=== PATIENT | female | born 2000 | race Caucasian/White ===

== ENCOUNTER 2019-12-24 11:24 | Emergency (ER) | payer OTHER, SELFPAY ==
--- NOTE | ~2019-12-24 | US_ITS ---
EXAMINATION: US pelvic complete w TV DATE: 12/24/2019 13:04 INDICATION: Pelvic pain, passing blood clots TECHNIQUE: Multiple transabdominal and endovaginal sonographic images of the pelvis were obtained. COMPARISON: 08/31/2018 FINDINGS: The uterus measures 7.7 x 5.2 x 3.2 cm. The endometrial complex measures 6 mm. The right ov beau measures 3.2 x 3.4 x 2.4 cm. There is a 2.5 x 2.4 x 2.1 cm complex cystic lesion of the right ova ry. The left ovary measures 2.1 x 1.5 x 1.5 cm. There is normal vascular flow in the ovaries. There i s no free fluid in the pelvis. IMPRESSION: 1. No sonographic correlate for the patient's symptoms. 2. Complex right ovarian cyst, possibly hemorrhagic. Ultrasound follow-up in 6-12 weeks is recommende d. Reviewed, dictated and finalized at location A. IMPRESSION: 1. No sonographic correlate for the patient's symptoms. 2. Complex right ovarian cyst, possibly hemorrhagic. Ultrasound follow-up in 6- 12 weeks is recommended.
[2019-12-24 11:44] VITALS: BP 112/83; PULSE 75; RESP 18; TEMP 36.9; O2SAT 98
[2019-12-24 11:59] LABS: Basophils Absolute Auto 0.1 K/mm3 (0.0-0.1); Basophils Percent Auto 1.9 % (0.2-1.2); Eosinophils Absolute Auto 0.3 K/mm3 (0-0.3); Eosinophils Percent Auto 6.4 % (0-4.4); Hematocrit 37.7 % (37.0-47.0); Hemoglobin 12.4 g/dL (12.0-15.0); Immature Granulocyte Absolute 0.01 K/mm3 (0.00-0.031); Immature Granulocyte Percent A 0.2 % (0-0.5); Lymphocytes Absolute Auto 1.63 K/mm3 (0.9-3.2); Lymphocytes Percent Auto 30.6 % (18.3-44.2); Mean Corpuscular HGB Conc 32.9 g/dl (32-36); Mean Corpuscular Hemoglobin 31.3 pg (26-34); Mean Corpuscular Volume 95.2 fl (80-100); Mean Platelet Volume 11.2 fl (7.4-10.4); Monocytes Absolute Auto 0.4 K/mm3 (0.1-0.6); Monocytes Percent Auto 8.1 % (2.6-8.5); Neutrophils Absolute Auto 2.8 K/mm3 (1.3-6.7); Neutrophils Percent Auto 52.8 % (45.5-73.1); Platelet Count Result 265 k/mm3 (150-375); Red Blood Count 3.96 M/mm3 (4.2-5.4); Red Cell Distribution Width 12.3 % (11.5-14.5); White Blood Count 5.3 K/mm3 (4.5-10.0)
[2019-12-24 12:02] LABS: Add Urine Microscopic? YES; Appearance Urine Clear (Clear); Bilirubin Urine Negative (Negative); Blood Urine 1+ (Negative); Color Urine Yellow (Yellow); Glucose Urine UA Negative (Negative); Ketones Urine Negative (Negative); Leukocyte Esterase Ur Negative LEU/UL (Negative); Mucus Urine Heavy /lpf; Nitrate Urine Negative (Negative); Protein Urine Negative (Negative); RBC Urine 0-2 /hpf (0-2); Specific Grav Ur 1.026 (1.001-1.035); Squamous Epithelial Cell Urine Few /hpf (Few); Urobilinogen Urine Negative mg/dL (<2.0); WBC Urine 0-3 /hpf
[2019-12-24 12:11] LABS: Alanine Aminotransferase 15 U/L (4-35); Albumin Level 5.2 g/dL (3.5-5.1); Alkaline Phosphatase 49 U/L (38-126); Aspartate Amino Transferase 25 U/L (14-36); Bilirubin,Total 0.5 mg/dL (0.2-1.3); Blood Urea Nitrogen 13 mg/dL (7-17); Calcium 9.8 mg/dL (8.4-10.2); Carbon Dioxide 26 mmol/L (22-30); Chloride 104 mmol/L (98-107); Estimated CRCL calculation 67 ml/min; Estimated Glomerular Filt Rate > 60; Glucose 89 mg/dL (65-105); Lipase 86 U/L (23-300); Potassium 4.1 mmol/L (3.4-5.0); Sodium 138 mmol/L (137-145)
--- NOTE | 2019-12-24 12:25 | ED.ABDPAIN ---
HPI - Abdominal Pain General Chief Complaint: Abdominal Pain Stated Complaint: passing blood clots, abd pain Time Seen by Provider: 12/24/19 12:04 Source: patient Mode of arrival: ambulatory Limitations: no limitations History of Present Illness HPI narrative: Patient is a 19-year-old female who presents with lower abdominal pain coupled with some blood-tinged vaginal discharge and is now passing clots her conche operator instructed her to come to to emergency department for further evaluation patient notes pain in the lower abdomen worse on the right side patient denies any current vomiting diarrhea urinary symptoms or similar occurrence in the past Related Data Allergies Allergy/AdvReac Type Severity Reaction Status Date / Time zamora flavor Allergy Unknown Swelling Verified 02/04/18 13:44 Review of Systems Review of Systems: All systems reviewed & are unremarkable except as noted in HPI and below PMFSH Family History Family History (Updated 07/14/15 @ 14:33 by DOCTOR UNKNOWN) Other Diabetes mellitus Social History Social History Smoking status: Never smoker Alcohol intake: never Substance use type: marijuana Gender identity (if verbalized by the patient): Female Exam Narrative: Exam Narrative: GENERAL: Well-appearing, well-nourished, and in no acute distress. HEAD: Normocephalic, atraumatic. EYES: PERRLA and EOMI. ENT: Nares clear, no rhinorrhea or epistaxis. Mucous membranes moist. Oropharynx without tonsillar hypertrophy exudate or other lesions. CHEST: Clear to auscultation. No respiratory distress. No wheezes rales or rhonchi HEART: Regular rate and rhythm. No murmur heard. Normal peripheral pulses. ABDOMEN: Soft, tenderness in the right adnexa no deformities noted no rebound or guarding remainder of abdomen nontender, nondistended, normal active bowel sounds. EXTREMITIES: Normal range of motion. No edema. SKIN: Warm, dry, no rash. NEURO: No focal deficits. Alert and oriented x3. PSYCH: Normal mood and affect. Course Course Emergency Course: Patient in the room in no distress aware of case findings treatment plan and diagnosis agreeing to follow-up as directed Vital Signs Vital signs: Vital Signs Temperature 98.4 F 12/24/19 11:44 Pulse Rate 75 12/24/19 11:44 Respiratory Rate 18 12/24/19 11:44 Blood Pressure 112/83 12/24/19 11:44 Pulse Oximetry 98 12/24/19 11:44 Temperature 98.4 F 12/24/19 11:44 Pulse Rate 75 12/24/19 11:44 Respiratory Rate 18 12/24/19 11:44 Blood Pressure 112/83 12/24/19 11:44 Pulse Oximetry 98 12/24/19 11:44 MDM - Abdominal Pain MDM Narrative Medical decision making narrative: Patient in the room in no distress aware of case findings treatment plan and diagnosis agreeing to follow-up with her conche operator likely ovarian cyst is the etiology of her symptoms felt appropriate for outpatient reevaluation also given reasons to return Lab Data Result diagrams: 12/24/19 11:49 12/24/19 11:49 Labs: Lab Results 12/24/19 12/24/19 12/24/19 Range/Units 11:49 11:49 11:49 WBC 5.3 (4.5-10.0) K/mm3 RBC 3.96 L (4.2-5.4) M/mm3 Hgb 12.4 (12.0-15.0) g/dL Hct 37.7 (37.0-47.0) % MCV 95.2 (80-100) fl MCH 31.3 (26-34) pg MCHC 32.9 (32-36) g/dl RDW 12.3 (11.5-14.5) % Plt Count 265 (150-375) k/mm3 MPV 11.2 H (7.4-10.4) fl Immature Gran % (Auto) 0.2 (0-0.5) % Neut % (Auto) 52.8 (45.5-73.1) % Lymph % (Auto) 30.6 (18.3-44.2) % [place] % (Auto) 8.1 (2.6-8.5) % Eos % (Auto) 6.4 H (0-4.4) % Baso % (Auto) 1.9 H (0.2-1.2) % Lymph # (Auto) 1.63 (0.9-3.2) K/mm3 [place] # (Auto) 0.4 (0.1-0.6) K/mm3 Eos # (Auto) 0.3 (0-0.3) K/mm3 Baso # (Auto) 0.1 (0.0-0.1) K/mm3 Abs Immat Gran (auto) 0.01 (0.00-0.031) K/mm3 Absolute Neuts (auto) 2.8 (1.3-6.7) K/mm3 Absolute Nucleated RBC
== END 2019-12-24 14:06 | disposition home or self-care (01) ==
PROVIDERS: Emergency Provider Emergency Medicine; PCP Obstetrics & Gynecology
DX: N83.201 Unspecified ovarian cyst, right side (principal); R10.9 Unspecified abdominal pain
CPT/HCPCS: 36415; 76830; 76856; 80053; 81001; 81025; 83690; 85025; 99284

== ENCOUNTER 2020-08-31 11:42 | Outpatient (CLI) | payer OTHER, SELFPAY ==
--- NOTE | ~2020-08-31 | US_ITS ---
US breast BI limited INDICATION: Breast pain TECHNIQUE: Dedicated bilateral breast ultrasound COMPARISON: No prior studies for comparison. FINDINGS: The breasts are composed of normal heterogeneous echotexture without focal solid or cystic mass. IMPRESSION: 1: Normal bilateral breast ultrasound. BI-RADS CATEGORY 1 - NEGATIVE Reviewed, dictated and finalized at location A. STRIAL TECH INSTRUCTOR
== END 2020-08-31 11:43 | disposition home or self-care (01) ==
PROVIDERS: PCP Nurse Practitioner Adult Health; Visit Provider Advanced Practice Midwife
DX: N64.4 Mastodynia (principal)
CPT/HCPCS: 76642

== ENCOUNTER 2020-11-18 17:29 | Outpatient (CLI) | payer OTHER, SELFPAY | END 2020-11-18 17:30 | disposition home or self-care (01) | LOC: ANHLAB 17:32 | PROVIDERS: PCP Nurse Practitioner Adult Health; Visit Provider Obstetrics & Gynecology | DX: O20.0 Threatened abortion (principal) | CPT/HCPCS: 36415; 84702 ==

== ENCOUNTER 2021-05-27 12:24 | Outpatient (RCR) | payer OTHER, SELFPAY ==
[2021-05-27 13:12] VITALS: BP 113/73; PULSE 98
== END 2021-07-14 09:42 | disposition home or self-care (01) ==
LOC: ANHOBOP 12:24
PROVIDERS: PCP Nurse Practitioner Adult Health; Visit Provider Obstetrics & Gynecology
DX: O36.5930 Maternal care for other known or suspected poor fetal growth, third trimester, not applicable or unspecified (principal); Z3A.33 33 weeks gestation of pregnancy
CPT/HCPCS: 59025

== ENCOUNTER 2021-06-08 12:08 | Observation (INO) | payer OTHER, SELFPAY ==
[2021-06-08 12:11] VITALS: BP 140/97; PULSE 118; RESP 18; TEMP 36.3; O2SAT 100
[2021-06-08 13:01] LABS: Add Urine Microscopic? YES; Appearance Urine Cloudy (Clear); Bacteria Urine Trace /hpf; Bilirubin Urine Negative (Negative); Blood Urine Negative (Negative); Color Urine Yellow (Yellow); Glucose Urine UA Negative (Negative); Ketones Urine Negative (Negative); Leukocyte Esterase Ur Negative LEU/UL (Negative); Mucus Urine Rare /lpf; Nitrate Urine Negative (Negative); Protein Urine Negative (Negative); RBC Urine 0-2 /hpf (0-2); Specific Grav Ur 1.008 (1.001-1.035); Squamous Epithelial Cell Urine Many /hpf (Few); Urobilinogen Urine Negative mg/dL (<2.0); WBC Urine 0-3 /hpf
--- NOTE | 2021-06-08 13:20 | PC.NURSE ---
pt states she began having some contractions. states they are irregular and more frequent than her usual.
--- NOTE | 2021-06-08 13:39 | ED.BACK ---
HPI - Back Pain/Injury General Chief Complaint: Back Pain/Injury <PREM Miguel Last Filed: 06/08/21 16:54> Stated Complaint: rib pain/35 weeks preg <PREM Miguel Last Filed: 06/08/21 16:54> Time Seen by Provider: 06/08/21 13:19 <PREM Miguel Last Filed: 06/08/21 16:54> Source: patient <PREM Miguel Last Filed: 06/08/21 16:54> Mode of arrival: ambulatory <PREM Miguel Last Filed: 06/08/21 16:54> Limitations: no limitations <PREM Miguel Last Filed: 06/08/21 16:54> History of Present Illness HPI Narrative: This is a 20-year-old G2, P1, about 35 weeks that presents to the emergency department for right-sided mid back pain. Present since yesterday. No recent injury or trauma. The pain is worse with movement and relieved with rest. She took some Tylenol this morning without relief and prompted her to be seen. While in the emergency department patient also started to note some inconsistent contractions. Denies fever, vomiting, vaginal bleeding, or discharge. <PREM Miguel Last Filed: 06/08/21 16:54> Related Data Home Medications: Home Medications Medication Instructions Recorded Confirmed [id number] 1 tablet PO DAILY 06/08/21 06/08/21 [] <PREM Miguel Last Filed: 06/08/21 16:54> Allergies/Adverse Reactions: Allergies Allergy/AdvReac Type Severity Reaction Status Date / Time zamora flavor Allergy Unknown Swelling Verified 06/08/21 12:37 <PREM Miguel Last Filed: 06/08/21 16:54> Review of Systems Review of Systems: CONSTITUTIONAL: Denies fever GASTROINTESTINAL: Reports cramping. Denies nausea, vomiting GENITOURINARY: Denies dysuria MUSCULOSKELETAL: Reports back pain, and myalgia. <PREM Miguel Last Filed: 06/08/21 16:54> All systems reviewed & are unremarkable except as noted in HPI and below <Saima Taveras PA-C - Last Filed: 06/08/21 16:54> PMFSH Past Medical History Medical History: Medical History (Updated 06/08/21 @ 13:42 by Saima Taveras PA-C) No active medical problems <Saima Taveras PA-C - Last Filed: 06/08/21 16:54> Family History Family History: Family History (Updated 07/14/15 @ 14:33 by DOCTOR UNKNOWN) Other Diabetes mellitus <Saima Taveras PA-C - Last Filed: 06/08/21 16:54> Social History Social History: Social History Smoking status: Never smoker Alcohol intake: never Substance use type: marijuana Gender identity (if verbalized by the patient): Female <Saima Taveras PA-C - Last Filed: 06/08/21 16:54> Exam Narrative: GENERAL: Well-appearing, well-nourished, and in no acute distress. HEAD: Normocephalic, atraumatic. EYES: EOMI. CHEST: Clear to auscultation. No respiratory distress. No wheezes rales or rhonchi HEART: Regular rate and rhythm. No murmur heard. Normal peripheral pulses. ABDOMEN: Gravid, nontender, nondistended, normal active bowel sounds. BACK: Tender to palpation of the right paraspinal thoracic musculature EXTREMITIES: Normal range of motion. No edema. SKIN: Warm, dry, no rash. NEURO: No focal deficits. Alert and oriented x3. PSYCH: Normal mood and affect <Saima Taveras PA-C - Last Filed: 06/08/21 16:54> Course CUT OFF SAW TENDER METAL/PA Physician Supervision I saw this patient in conjunction with the PA I spent time with the patient, evaluated them myself and agree with the care plan <Ellis Killian MD - Last Filed: 06/08/21 17:41> Consultations Consultation #1: Spoke with Dr. Zheng about patient and workup who would like patient sent over to OB for monitoring <Saima Taveras PA-C - Last Filed: 06/08/21 16:54> Date: 06/08/21 <Saima Taveras PA-C - Last Filed: 06/08/21 16:54> Time: 13:43 <Saima Taveras PA-C - Last Filed: 06/08/21 16:54> Vital Sig
[2021-06-08 13:53] LABS: Basophils Absolute Auto 0.1 K/mm3 (0.0-0.1); Basophils Percent Auto 0.5 % (0.2-1.2); Eosinophils Absolute Auto 0.2 K/mm3 (0-0.3); Eosinophils Percent Auto 1.5 % (0-4.4); Hematocrit 29.2 % (37.0-47.0); Hemoglobin 9.6 g/dL (12.0-15.0); Immature Granulocyte Absolute 0.15 K/mm3 (0.00-0.031); Lymphocytes Absolute Auto 2.31 K/mm3 (0.9-3.2); Lymphocytes Percent Auto 15.5 % (18.3-44.2); Mean Corpuscular HGB Conc 32.9 g/dl (32-36); Mean Corpuscular Hemoglobin 30.1 pg (26-34); Mean Corpuscular Volume 91.5 fl (80-100); Mean Platelet Volume 11.1 fl (7.4-10.4); Monocytes Absolute Auto 1.4 K/mm3 (0.1-0.6); Monocytes Percent Auto 9.1 % (2.6-8.5); Neutrophils Absolute Auto 10.8 K/mm3 (1.3-6.7); Neutrophils Percent Auto 72.4 % (45.5-73.1); Platelet Count Result 460 k/mm3 (150-375); Red Blood Count 3.19 M/mm3 (4.2-5.4); Red Cell Distribution Width 14.8 % (11.5-14.5); White Blood Count 14.9 K/mm3 (4.5-10.0)
--- NOTE | 2021-06-08 14:00 | PC.NURSE ---
pt taken to ob via wheelchair.
[2021-06-08 14:11] LABS: Alanine Aminotransferase 21 U/L (4-35); Albumin Level 3.9 g/dL (3.5-5.1); Alkaline Phosphatase 151 U/L (38-126); Anion Gap 9 mmol/L (8-16); Aspartate Amino Transferase 21 U/L (14-36); Bilirubin,Total 0.3 mg/dL (0.2-1.3); Blood Urea Nitrogen 6 mg/dL (7-17); Calcium 9.1 mg/dL (8.4-10.2); Carbon Dioxide 22 mmol/L (22-30); Chloride 105 mmol/L (98-107); Estimated CRCL calculation 142 ml/min; Estimated Glomerular Filt Rate > 60; Glucose 96 mg/dL (65-110); Potassium 3.9 mmol/L (3.4-5.0); Sodium 136 mmol/L (137-145)
[2021-06-08 14:28] VITALS: TEMP 37.3
[2021-06-08 14:30] VITALS: BP 137/84; PULSE 105
[2021-06-08 14:45] VITALS: BP 129/83; PULSE 98
--- NOTE | 2021-06-08 14:45 | PC.NURSE ---
David HULL called,informed pt presented to the ER with right sided back pain. Pt has CVA tenderness on her right flank area and is c/o period cramping . Pt has frequent 40-50 second contractions, SVE is closed. Labs reported. Order received for kidney US and LR bolus.
[2021-06-08 15:00] VITALS: BP 126/79; PULSE 104
--- NOTE | 2021-06-08 15:19 | PC.NURSE ---
1510-At bedside, pt states her pain feels much better in her back and she feels like it muscular. She states she has had it off and on for a few weeks and that she has even had a hydro massage for it. She states she felt like her scapula muscle was tense when she woke up and that is why she came to the ER. Informed pt that a kidney US was ordered and she said she really doesn't feel like it is her kidney and that when I was assessing for CVA tenderness it felt like her rib hurt more than anything. I suggested me calling David HULL back and asking for a flexeril and she agreed with that plan.
--- NOTE | 2021-06-08 15:30 | PC.NURSE ---
1519-David HULL called,informed pt would like to have a flexeril for what she feel is muscular pain and not kidney pain. Explained to her the conversation I had with the pt. US cancelled and flexeril ordered.
[2021-06-08] MEDS: CYCLOBENZAPRINE HCL 10 MG TABLET PO (15:53)
--- NOTE | 2021-06-08 16:35 | PC.NURSE ---
David HULL called, pt states she vomited after taking the flexeril but got dressed and said she is ready to go home now that her boyfriend is here with her. Order received for terbutaline for uterine irritability. Talked with pt, she agreed to stay and take the terbutaline but is curious how long she will have to stay. I informed her it depends on how her uterus responds to the medication.
[2021-06-08] MEDS: TERBUTALINE SULFATE 1 MG/ML VIAL 0.25 MG SUB-Q (17:05)
[2021-06-08 17:18] VITALS: BMI 21.9
--- NOTE | 2021-06-10 07:26 | PM.OBTRLD ---
OB - Triage/Final Diagnosis Visit Information Date of evaluation: 06/08/21 Reason for evaluation: threatened labor Comments/Additional reasons for admission: I have assessed the risk for this patient, Gladis Berry, and determined that she would benefit from observation care. Evaluation Laboratory results: Laboratory Tests 06/08/21 06/08/21 06/08/21 12:41 13:44 13:44 WBC 14.9 H RBC 3.19 L Hgb 9.6 L Hct 29.2 L MCV 91.5 MCH 30.1 MCHC 32.9 RDW 14.8 H Plt Count 460 H D MPV 11.1 H Immature Gran % (Auto) 1.0 H Neut % (Auto) 72.4 Lymph % (Auto) 15.5 L [place] % (Auto) 9.1 H Eos % (Auto) 1.5 Baso % (Auto) 0.5 Lymph # (Auto) 2.31 [place] # (Auto) 1.4 H Eos # (Auto) 0.2 Baso # (Auto) 0.1 Abs Immat Gran (auto) 0.15 H Absolute Neuts (auto) 10.8 H Absolute Nucleated RBC 0.0 Nucleated RBC % 0.0 Sodium 136 L Potassium 3.9 Chloride 105 Carbon Dioxide 22 Anion Gap 9 BUN 6 L D Creatinine 0.40 L Estim Creat Clear Calc 142 Estimated GFR > 60 Glucose 96 Calcium 9.1 Total Bilirubin 0.3 AST 21 ALT 21 Alkaline Phosphatase 151 H Total Protein 7.0 Albumin 3.9 Urine Color Yellow Urine Appearance Cloudy H Urine pH 7.0 Ur Specific [place] 1.008 Urine Protein Negative Urine Glucose (UA) Negative Urine Ketones Negative Ur Blood (Man) Negative Urine Nitrate Negative Urine Bilirubin Negative Urine Urobilinogen Negative Leukocyte Esterase Rfl Negative Urine RBC 0-2 Urine WBC 0-3 Ur Squamous Epith Cells Many H Urine Bacteria Trace Urine Mucus Rare
== END 2021-06-08 18:00 | disposition home or self-care (01) ==
LOC: ANHED 13:40 → ANHOBPP 14:20
PROVIDERS: Physician Assistant; Admitting Provider Obstetrics & Gynecology; Emergency Provider Emergency Medicine; PCP Nurse Practitioner Adult Health; Visit Provider Obstetrics & Gynecology
DX: O99.891 Other specified diseases and conditions complicating pregnancy (principal); M54.9 Dorsalgia, unspecified; O47.03 False labor before 37 completed weeks of gestation, third trimester; Z3A.34 34 weeks gestation of pregnancy
CPT/HCPCS: 36415; 80053; 81001; 85025; 96372; 99285; A9270; G0378; G0379; J3105

== ENCOUNTER 2021-06-23 15:21 | Outpatient (RCR) | payer OTHER, SELFPAY ==
[2021-06-23 17:12] VITALS: BP 128/86; PULSE 103
== END 2021-08-05 20:43 | disposition home or self-care (01) ==
LOC: ANHOBOP 15:21
PROVIDERS: PCP Nurse Practitioner Adult Health; Visit Provider Advanced Practice Midwife
DX: O36.5930 Maternal care for other known or suspected poor fetal growth, third trimester, not applicable or unspecified (principal); O36.8330 Maternal care for abnormalities of the fetal heart rate or rhythm, third trimester, not applicable or unspecified; Z3A.37 37 weeks gestation of pregnancy
CPT/HCPCS: 59025

== ENCOUNTER 2021-06-30 18:32 | Inpatient (IN) | payer OTHER, SELFPAY ==
[2021-06-30] VITALS (43 sets, daily range): BP systolic 118–142; BP diastolic 63–85; PULSE 86–133; RESP 18; TEMP 36.6–37.6; O2SAT 80–100
--- NOTE | 2021-06-30 16:40 | PM.IMHP ---
H&P: HPI History of Present Illness Date/Time: 06/30/21 16:40 20 y/o admitted for induction of labor. Diagnosis of GHTN made in the office today. is also complicated by SGA. Chief Complaint: Induction of labor Review of Systems Review of Systems: All systems reviewed & are unremarkable except as noted in HPI and below Constitutional: Constitutional: Reports as per HPI and Reports no additional constitutional complaints Eyes: Eyes: Reports as per HPI ENT: Reports system reviewed and no additional complaints, except as documented Cardiovascular: Cardiovascular: Reports as per HPI Respiratory: Respiratory: Reports as per HPI Gastrointestinal: Gastrointestinal: Reports as per HPI Genitourinary: Genitourinary: Reports no additional female genitourinary complaints Musculoskeletal: Musculoskeletal: Reports no additional musculoskeletal complaints Integumentary/Breasts: Skin/Breast: Reports system reviewed and no additional complaints, except as docu Neurologic: Reports system reviewed and no additional complaints, except as documented Psychiatric: Psychiatric: Reports no additional psychiatric complaints Endocrine: Endocrine: Reports no additional endocrine complaints Hematologic/Lymphatic: Hematologic/Lymphatic: Reports no additional hematologic/lymphatic complaints Allergic/Immunologic: Allergic/Immunologic: Reports no additional allergic/immunologic complaints [facility] Past Medical History Medical History (Updated 06/08/21 @ 13:42 by Saima Taveras PA-C) No active medical problems Family History Family History (Updated 06/14/21 @ 14:44 by Ovidio Lazaro RN) Grandparent Diabetes mellitus Social History Social History Smoking status: Never smoker Alcohol intake: never Substance use: current Substance use type: marijuana Last use: LAST TIME OCTOBER 2020 Gender identity (if verbalized by the patient): Female Spiritual care concerns: No Meds Home Medications and Allergies Home Medications Medication Instructions Recorded Confirmed Type nxzalgie-taw-Lb-FA 1 tablet PO DAILY 06/08/21 06/08/21 History ferrous sulfate 140 mg PO DAILY 06/14/21 06/14/21 History omeprazole [Prilosec] 10 mg PO DAILY 06/14/21 06/14/21 History Allergies Allergy/AdvReac Type Severity Reaction Status Date / Time zamora flavor Allergy Unknown Swelling Verified 06/08/21 12:37 Exam Const: General: cooperative and healthy appearing Orientation/consciousness: oriented to person, oriented to place, oriented to time and patient oriented x3 Limitations: no limitations HENMT: Head: normal to inspection Ears: hearing grossly normal bilaterally General nose exam: Normal external nose present Face and sinus: normal facial exam Mouth: Yes Normal oral and palatal mucosa present Teeth and gingiva: dentition normal Throat: posterior oropharynx normal Eyes: General: appearance normal, both eyes and all related structures Neck: Neck: normal visual inspection Thyroid: thyroid normal Chest: Chest palpation & inspection: normal inspection of the chest Resp: Effort & Inspection: normal respiratory effort Auscultation: clear to auscultation bilaterally Cardio: Rate: regular rate Rhythm: regular rhythm GI: Inspection: normal to inspection : General: Yes bimanual renal exam normal bilaterally Skin: General skin exam: normal color and no rashes or lesions noted Neuro: General: oriented to person, oriented to place, oriented to time and patient oriented x3 Extrem: General: normal to inspection Psych: Mental Status: mental status grossly normal
--- OUTSIDE RECORDS SUMMARY | 2021-06-30 18:37 | XMS_ITS ---
:2000 Author Care Team Providers Name Role Phone Jazmyne Pineda Primary Care Provider Unavailable Allergies Code Code System Name Reaction Severity Status Onset NKDA ? Medications Name Status Start Date Stop Date ? ? cyclobenzaprine 5 mg tablet Active ? Not available Golytely 236 gram-22.74 gram-6.74 gram-5.86 gram oral solution C ompleted ? 08/24/2020 USE DIRECTED Junel Fe 24 1 mg-20 mcg (24)/75 mg (4) tablet Completed 08/24/2020 take 1 tablet by oral route every day Lo Loestrin Fe 1 mg-10 mcg Completed ? 08/24 (24)/10 mcg (2) tablet omeprazole 20 mg capsule,delayed release Completed ? 08/24/2020 TAKE 1 CAPSULE BY MOUTH EVERY DAY ondansetron 8 mg disintegrating tablet Completed ? 08/24/[address] PL[address] 1 TABLET(S) EVERY 8 HOURS BY TRANSLINGUAL ROUTE. Active ? Not available Problems Name Status Onset Date Source ? , Childbirth and Puerperium Unknown 08/03/2017 History Finding Screening Unknown 08/09/2017 History Rubella Screening Status Unknown 08/14/2017 History , Childbirth and Puerperium Unknown 08/14/2017 History Finding Screening for Malformation Unknown 10/03/2017 History Gestation Period, 28 Weeks Unknown 10/31/2017 Histo ry , Childbirth and Puerperium Unknown 11/28/2017 History Finding Gestation Period, 31 Weeks Unknown 12/19/2017 Histo ry Gestation Period, 32 Weeks
--- OUTSIDE RECORDS SUMMARY | 2021-06-30 18:37 | XMS_ITS | Encounter Summary ---
:2000 Author Reason for Visit None recorded. Assessment and Plan 1. Small for gestational age fet us ? US, obstetric, follow-up ? US, doppler, umbilic al artery velocimetry ? US, obstetric, biophysical profile + non-stress test Discussion Note: None recorded.Patient educational handouts: No information available. Plan of Care Reminders Provider Appointments Ob Routine Liz Pineda CNM 07/07/2021 2:30PM ? Ob Routine Jazmyne Pineda CNM 07/14/2021 2:30PM Lab None recorded. ? ? Referral None recorded. ? ? Procedures None recorded. ? ? Surgeries None recorded. ? ? Imaging US, Obstetric, Damian ryan Follow-up 06/30/2021 ? US, Doppler, Poonam dukes Umbilical Artery 06/30/2021 Velocimetry ? US, Obstetric, Damian ryan Biophysical Profile + 06/30/2021 Non-stress Test Medications Name Start Date ? ? cyclobenzaprine 5 mg tablet ? Take 1 tablet 3 times a day by oral route. ? Medications Admini
--- OUTSIDE RECORDS SUMMARY | 2021-06-30 18:38 | XMS_ITS | Encounter Summary ---
:2000 Author Reason for Visit OB visit Assessment and Plan Assessment Note Patient is ___weeks . Discu ssed plan. 1. Spasm of back muscles ? cyclobenzaprine 5 mg table t Discussion Note: None recorded.Patient educational handouts: No information available. Plan of Care Reminders Provider Appointments Ob Routine Liz Pineda CNM 07/07/2021 2:30PM ? Ob Routine Jazmyne Pineda CNM 07/14/2021 2:30PM Lab None ? ? recorded. Referral None ? ? recorded. Procedures None ? ? recorded. Surgeries None ? ? recorded. Imaging None ? ? recorded. Medications Name Start Date ? ? cyclobenzaprine 5 mg tablet ? Take 1 tablet 3 times a day by oral route. ? Medications Administered None recorded. Vitals Height Weight BMI Blood Pressure 5 ft 1 in 117 lbs 22.1 kg/m2 129/90 mm[Hg] Results Lab Results None recorded. Allergies Code Code System Name Reaction Severity Onset NKDA ? ? ? Problems
--- OUTSIDE RECORDS SUMMARY | 2021-06-30 18:38 | XMS_ITS | Encounter Summary ---
:2000 Author Reason for Visit None recorded. Assessment and Plan 1. growth restriction ? non-stress test Discussion Note: None recorded.Patient educational handouts: No information available. Plan of Care Reminders Provider Appointments Ob Routine Liz Pineda CNM 07/07/2021 2:30PM ? Ob Routine Jazmyne Pineda CNM 07/14/2021 2:30PM Lab None ? ? recorded. Referral None ? ? recorded. Procedures None ? ? recorded. Surgeries None ? ? recorded. Imaging Non-stress [place] Test 06/27/2021 Medications Name Start Date ? ? cyclobenzaprine 5 mg tablet ? Take 1 tablet 3 times a day by oral route. ? Medications Administered None recorded. Vitals Blood Pressure 137/82 mm[Hg] Results Lab Results None recorded. Allergies Code Code System Name Reaction Severity Onset NKDA ? ? ? Problems Name Status Onset Date Source ?
--- OUTSIDE RECORDS SUMMARY | 2021-06-30 18:38 | XMS_ITS | Encounter Summary ---
:2000 Author Reason for Visit None recorded. Assessment and Plan 1. Small for gestational age fet us ? non-stress test Discussion Note: None recorded.Patient educational handouts: No information available. Plan of Care Reminders Provider Appointments Ob Routine Liz Pineda CNM 07/07/2021 2:30PM ? Ob Routine Jazmyne Pineda CNM 07/14/2021 2:30PM Lab None ? ? recorded. Referral None ? ? recorded. Procedures None ? ? recorded. Surgeries None ? ? recorded. Imaging Non-stress [place] Test 06/30/2021 Medications Name Start Date ? ? cyclobenzaprine 5 mg tablet ? Take 1 tablet 3 times a day by oral route. ? Medications Administered None recorded. Vitals None recorded. Results Lab Results None recorded. Allergies Code Code System Name Reaction Severity Onset NKDA ? ? ? Problems Name Status Onset Date Source ? Active 01/10/2021 ? Procedures
--- OUTSIDE RECORDS SUMMARY | 2021-06-30 18:38 | XMS_ITS | Encounter Summary ---
[...] ? recorded. Imaging Non-stress [place] Test 06/23/2021 Medications Name Start Date ? ? cyclobenzaprine [...]
--- OUTSIDE RECORDS SUMMARY | 2021-06-30 18:38 | XMS_ITS | Encounter Summary ---
[...] ? recorded. Imaging Non-stress [place] Test 06/16/2021 Medications Name Start Date ? ? cyclobenzaprine 5 mg tablet ? Take 1 tablet 3 times a day by oral route. ? Medications Administered None recorded. Vitals Blood Pressure 135/67 mm[Hg] Results Lab Results None recorded. Allergies Code Code System Name Reaction Severity Onset NKDA ? ? ? Problems Name Status Onset Date Source ?
--- OUTSIDE RECORDS SUMMARY | 2021-06-30 18:38 | XMS_ITS | Encounter Summary ---
:2000 Author Reason for Visit OB visit 37wks Assessment and Plan Assessment Note Patient is ___weeks . Discu ssed plan. Discussion Note: None recorded.Patient educational handouts: No [...] Date Source ? Active 01/10/2021 ? Procedures Date Name
--- OUTSIDE RECORDS SUMMARY | 2021-06-30 18:38 | XMS_ITS | Encounter Summary ---
:2000 Author Reason for Visit nst Assessment and Plan None recorded.Discussion Note: None recorded.Patient educational handouts: No information [...] ? Medications Administered None recorded. Vitals Height Blood Pressure 5 ft 1 in 122/78 mm[Hg] Results Lab Results None recorded. Allergies Code Code System Name Reaction Severity Onset NKDA ? ? ? Problems Name Status Onset Date Source ? Active 01/10/2021 ? Procedures Date Name Performed by ?
--- OUTSIDE RECORDS SUMMARY | 2021-06-30 18:38 | XMS_ITS | Encounter Summary ---
:2000 Author Reason for Visit OB visit Assessment and Plan Assessment Note Patient is ___weeks . Discu ssed plan. 1. Routine care Discussion Note: None recorded.Patient educational handouts: No [...] BMI Blood Pressure 5 ft 1 in 122 lbs 23.1 kg/m2 116/79 mm[Hg] Results Lab Results None recorded. Allergies Code Code System Name Reaction Severity Onset NKDA ? ? ? Problems Name Status Onset Date Source ?
--- OUTSIDE RECORDS SUMMARY | 2021-06-30 18:38 | XMS_ITS | Encounter Summary ---
[...] ? recorded. Imaging Non-stress [place] Test 06/09/2021 Medications Name Start Date ? ? cyclobenzaprine [...]
--- OUTSIDE RECORDS SUMMARY | 2021-06-30 18:38 | XMS_ITS | Encounter Summary ---
[...] ? recorded. Imaging Non-stress [place] Test 06/13/2021 Medications Name Start Date ? ? cyclobenzaprine [...]
--- OUTSIDE RECORDS SUMMARY | 2021-06-30 18:38 | XMS_ITS | Encounter Summary ---
:2000 Author Reason for Visit None recorded. Assessment and Plan 1. Small for gestational age fet us ? US, obstetric, biophysical profile + non-stress test ? US, doppler, umbilic al artery velocimetry Discussion Note: None recorded.Patient educational handouts: No information available. Plan of Care Reminders Provider Appointments Ob Routine Liz Pineda CNM 07/07/2021 2:30PM ? Ob Routine Jazmyne Pineda CNM 07/14/2021 2:30PM Lab None recorded. ? ? Referral None recorded. ? ? Procedures None recorded. ? ? Surgeries None recorded. ? ? Imaging US, Obstetric, [place] Biophysical Profile + 06/02/2021 Non-stress Test ? US, Doppler, Poonam dukes Umbilical Artery 06/02/2021 Velocimetry Medications Name Start Date ? ? cyclobenzaprine 5 mg tablet ? Take 1 tablet 3 times a day by oral route. ? Medications Administered None recorded. Vitals None recorded. Results Lab Results None recorded. Allergies Code Code System Name Reaction Severity Onset
--- OUTSIDE RECORDS SUMMARY | 2021-06-30 18:38 | XMS_ITS | Encounter Summary ---
[...] None recorded. ? ? Imaging US, Obstetric, [place] Biophysical Profile + 06/16/2021 Non-stress Test ? US, Doppler, Poonam ernst Umbilical Artery 06/16/2021 Velocimetry Medications Name Start Date ? ? cyclobenzaprine 5 mg tablet ? Take 1 tablet 3 times a day by oral route. ? Medications Administered None recorded. Vitals None recorded. Results Lab Results None recorded. Allergies Code Code System Name Reaction Severity Onset
--- OUTSIDE RECORDS SUMMARY | 2021-06-30 18:38 | XMS_ITS | Encounter Summary ---
:2000 Author Reason for Visit NST Assessment and Plan 1. growth restriction ? [...] ? recorded. Imaging Non-stress [place] Test 06/20/2021 Medications Name Start Date ? ? cyclobenzaprine 5 mg tablet ? Take 1 tablet 3 times a day by oral route. ? Medications Administered None recorded. Vitals Height Weight BMI Blood Pressure 5 ft 1 in 123 lbs 23.2 kg/m2 122/77 mm[Hg] Results Lab Results None recorded. Allergies Code Code System Name Reaction Severity Onset NKDA ? ? ? Problems Name Status Onset Date Source ?
--- OUTSIDE RECORDS SUMMARY | 2021-06-30 18:38 | XMS_ITS | Encounter Summary ---
[...] ? recorded. Imaging Non-stress [place] Test 06/02/2021 Medications Name Start Date ? ? cyclobenzaprine [...]
--- OUTSIDE RECORDS SUMMARY | 2021-06-30 18:38 | XMS_ITS | Encounter Summary ---
[...] ? recorded. Imaging Non-stress [place] Test 06/06/2021 Medications Name Start Date ? ? cyclobenzaprine 5 mg tablet ? Take 1 tablet 3 times a day by oral route. ? Medications Administered None recorded. Vitals Blood Pressure 121/78 mm[Hg] Results Lab Results None recorded. Allergies Code Code System Name Reaction Severity Onset NKDA ? ? ? Problems Name Status Onset Date Source ?
--- OUTSIDE RECORDS SUMMARY | 2021-06-30 18:38 | XMS_ITS | Encounter Summary ---
[...] ft 1 in 117 lbs 22.1 kg/m2 118/77 mm[Hg] Results Lab Results None recorded. Allergies Code Code System Name Reaction Severity Onset NKDA ? ? ? Problems Name Status Onset Date Source ?
--- OUTSIDE RECORDS SUMMARY | 2021-06-30 18:38 | XMS_ITS | Encounter Summary ---
[...] None recorded. ? ? Imaging US, Obstetric, [place] Biophysical Profile + 06/09/2021 Non-stress Test ? US, Doppler, Poonam dukes Umbilical Artery 06/09/2021 Velocimetry Medications Name Start Date ? ? cyclobenzaprine 5 mg tablet ? Take 1 tablet 3 times a day by oral route. ? Medications Administered None recorded. Vitals None recorded. Results Lab Results None recorded. Allergies Code Code System Name Reaction Severity Onset
--- OUTSIDE RECORDS SUMMARY | 2021-06-30 18:39 | XMS_ITS | Encounter Summary ---
[...] ft 1 in 117 lbs 22.1 kg/m2 (1) 145/94 mm[H g] (2) 125/82 mm[Hg ] Results Lab Results None recorded. Allergies Code Code System Name Reaction Severity Onset NKDA ? ? ? Problems
--- OUTSIDE RECORDS SUMMARY | 2021-06-30 18:39 | XMS_ITS | Encounter Summary ---
[...] None recorded. ? ? Imaging US, Obstetric, [place] Biophysical Profile + 05/23/2021 Non-stress Test ? US, Doppler, Poonam dukes Umbilical Artery 05/23/2021 Velocimetry Medications Name Start Date ? ? cyclobenzaprine 5 mg tablet ? Take 1 tablet 3 times a day by oral route. ? Medications Administered None recorded. Vitals None recorded. Results Lab Results None recorded. Allergies Code Code System Name Reaction Severity Onset
--- OUTSIDE RECORDS SUMMARY | 2021-06-30 18:39 | XMS_ITS | Encounter Summary ---
:2000 Author Reason for Visit None recorded. Assessment and Plan 1. condition affecting obs tetrical care of mother ? US, obstetric, biophysical profile + non-stress test Discussion Note: None recorded.Patient educational handouts: No information available. Plan of Care Reminders Provider Appointments Ob Routine Liz Pineda CNM 07/07/2021 2:30PM ? Ob Routine Jazmyne Pineda CNM 07/14/2021 2:30PM Lab None recorded. ? ? Referral None recorded. ? ? Procedures None recorded. ? ? Surgeries None recorded. ? ? Imaging US, Obstetric, [facility] Biophysical Profile + 05/16/2021 Non-stress Test Medications Name Start Date ? ? cyclobenzaprine 5 mg tablet ? Take 1 tablet 3 times a day by oral route. ? Medications Administered None recorded. Vitals None recorded. Results Lab Results None recorded. Allergies Code Code System Name Reaction Severity Onset NKDA ? ? ? Problems Name Status Onset Date Source ?
--- OUTSIDE RECORDS SUMMARY | 2021-06-30 18:39 | XMS_ITS | Encounter Summary ---
[...] ? recorded. Imaging Non-stress [place] Test 05/23/2021 Medications Name Start Date ? ? cyclobenzaprine [...]
--- OUTSIDE RECORDS SUMMARY | 2021-06-30 18:39 | XMS_ITS | Encounter Summary ---
:2000 Author Reason for Visit OB visit 27w4d Assessment and Plan 1. Routine care Discussion Note: None recorded.Patient [...] BMI Blood Pressure 5 ft 1 in 108 lbs 20.4 kg/m2 130/84 mm[Hg] Results Lab Results None recorded. Allergies Code Code System Name Reaction Severity Onset NKDA ? ? ? Problems Name Status Onset Date Source ? Active 01/10/2021 ?
--- OUTSIDE RECORDS SUMMARY | 2021-06-30 18:39 | XMS_ITS | Encounter Summary ---
:2000 Author Reason for Visit None recorded. Assessment and Plan 1. condition affecting obs tetrical care of mother ? US, obstetric, biophysical profile + non-stress test ? US, doppler, umbilic al artery velocimetry Discussion Note: None recorded.Patient educational handouts: No information available. Plan of Care Reminders Provider Appointments Ob Routine Liz Pineda, DELLA 07/07/2021 2:30PM ? Ob Routine Jazmyne Pineda, NICKO 07/14/2021 2:30PM Lab None recorded. ? ? Referral None recorded. ? ? Procedures None recorded. ? ? Surgeries None recorded. ? ? Imaging US, Obstetric, [facility] Biophysical Profile + 05/19/2021 Non-stress Test ? US, Doppler, Poonam dukes Umbilical Artery 05/19/2021 Velocimetry Medications Name Start Date ? ? cyclobenzaprine 5 mg tablet ? Take 1 tablet 3 times a day by oral route. ? Medications Administered None recorded. Vitals None recorded. Results Lab Results None recorded. Allergies Code Code System Name Reaction Severity
--- OUTSIDE RECORDS SUMMARY | 2021-06-30 18:39 | XMS_ITS | Encounter Summary ---
[...] ? recorded. Imaging Non-stress [place] Test 05/16/2021 Medications Name Start Date ? ? cyclobenzaprine 5 mg tablet ? Take 1 tablet 3 times a day by oral route. ? Medications Administered None recorded. Vitals Blood Pressure 119/73 mm[Hg] Results Lab Results None recorded. Allergies Code Code System Name Reaction Severity Onset NKDA ? ? ? Problems Name Status Onset Date Source ?
--- OUTSIDE RECORDS SUMMARY | 2021-06-30 18:39 | XMS_ITS | Encounter Summary ---
[...] BMI Blood Pressure 5 ft 1 in 112 lbs 21.2 kg/m2 121/84 mm[Hg] Results Lab Results None recorded. Allergies Code Code System Name Reaction Severity Onset NKDA ? ? ? Problems Name Status Onset Date Source ?
--- OUTSIDE RECORDS SUMMARY | 2021-06-30 18:39 | XMS_ITS | Encounter Summary ---
[...] None recorded. ? ? Imaging US, Obstetric, [place] Biophysical Profile + 05/05/2021 Non-stress Test ? US, Doppler, Poonam dukes Umbilical Artery 05/05/2021 Velocimetry Medications Name Start Date ? ? cyclobenzaprine 5 mg tablet ? Take 1 tablet 3 times a day by oral route. ? Medications Administered None recorded. Vitals None recorded. Results Lab Results None recorded. Allergies Code Code System Name Reaction Severity Onset
--- OUTSIDE RECORDS SUMMARY | 2021-06-30 18:39 | XMS_ITS | Encounter Summary ---
[...] BMI Blood Pressure 5 ft 1 in 116 lbs 21.9 kg/m2 123/76 mm[Hg] Results Lab Results None recorded. Allergies Code Code System Name Reaction Severity Onset NKDA ? ? ? Problems Name Status Onset Date Source ?
[2021-06-30 19:39] LABS: Basophils Absolute Auto 0.1 K/mm3 (0.0-0.1); Basophils Percent Auto 0.5 % (0.2-1.2); Eosinophils Absolute Auto 0.3 K/mm3 (0-0.3); Eosinophils Percent Auto 1.8 % (0-4.4); Hemoglobin 10.1 g/dL (12.0-15.0); Immature Granulocyte Absolute 0.14 K/mm3 (0.00-0.031); Immature Granulocyte Percent A 0.9 % (0-0.5); Lymphocytes Absolute Auto 2.67 K/mm3 (0.9-3.2); Lymphocytes Percent Auto 17.7 % (18.3-44.2); Mean Corpuscular HGB Conc 32.6 g/dl (32-36); Mean Corpuscular Hemoglobin 28.6 pg (26-34); Mean Corpuscular Volume 87.8 fl (80-100); Mean Platelet Volume 11.2 fl (7.4-10.4); Monocytes Absolute Auto 1.2 K/mm3 (0.1-0.6); Neutrophils Absolute Auto 10.7 K/mm3 (1.3-6.7); Neutrophils Percent Auto 71.1 % (45.5-73.1); Nucleated Red Blood Cells Absolute Auto 0.1 K/mm3 (0.0-0.012); Nucleated Red Blood Cells Perc 0.5 % (0.0-0.2); Platelet Count Result 479 k/mm3 (150-375); Red Blood Count 3.53 M/mm3 (4.2-5.4); Red Cell Distribution Width 15.6 % (11.5-14.5); White Blood Count 15.1 K/mm3 (4.5-10.0)
[2021-06-30] MEDS: LACTATED RINGERS 1,000 ML 125 ML IV CONT (20:04)
--- NOTE | 2021-06-30 20:30 | LDADM ---
This patient, Gladis Berry, was admitted to Labor/Delivery/Recovery 103 on 06/30/21 at 18:32. Plans for labor, pain management and were discussed with patient. Patient/family oriented to hospital policies and general routines including ID bracelet, bed and alarms, visiting hours, pain management, procedures, bathroom and other care routines, personal items, smoking policy, room service/diet and guest tray routines, infant security routines, and visiting hours. Patient/Family are encouraged to report perceived risks to care and to ask questions if they do not understand what they are told or what they should do. See OBIX for further documentation.
[2021-06-30 21:20] LABS: Add Urine Microscopic? NO; Appearance Urine Clear (Clear); Bilirubin Urine Negative (Negative); Blood Urine Negative (Negative); Color Urine Straw (Yellow); Glucose Urine UA Negative (Negative); Ketones Urine Negative (Negative); Leukocyte Esterase Ur Negative LEU/UL (NEGATIVE); Nitrate Urine Negative (Negative); Protein Urine Negative (Negative); Urobilinogen Urine Negative mg/dL (<2.0)
--- NOTE | 2021-06-30 21:23 | WPDANESEPP ---
Anes - Eval Pre Procedure Procedure: labor epidural Date/Time: 06/30/21 21:23 Surgeon: aury Preop Diagnosis: pain during labor Pre Op Diagnosis: IOL Patient Data Age: 20 Gender: F Height: Weight: Last Vital Signs Pulse 99 06/30/21 19:37 BP 120/77 06/30/21 19:37 Allergies Allergy/AdvReac Type Severity Reaction Status Date / Time zamora flavor Allergy Unknown Swelling Verified 06/08/21 12:37 Home Medications Medication Instructions Recorded Confirmed Type [id number] 1 tablet PO DAILY 06/08/21 06/08/21 History ferrous sulfate 140 mg PO DAILY 06/14/21 06/14/21 History omeprazole [Prilosec] 10 mg PO DAILY 06/14/21 06/14/21 History Laboratory Tests 06/30/21 06/30/21 06/30/21 19:31 19:31 21:05 WBC 15.1 K/mm3 H K/mm3 (4.5-10.0) RBC 3.53 M/mm3 L M/mm3 (4.2-5.4) Hgb 10.1 g/dL L g/dL (12.0-15.0) Hct 31.0 % L % (37.0-47.0) MCV 87.8 fl fl (80-100) MCH 28.6 pg pg (26-34) MCHC 32.6 g/dl g/dl (32-36) RDW 15.6 % H % (11.5-14.5) Plt Count 479 k/mm3 H k/mm3 (150-375) MPV 11.2 fl H fl (7.4-10.4) Immature Gran % (Auto) 0.9 % H % (0-0.5) Neut % (Auto) 71.1 % % (45.5-73.1) Lymph % (Auto) 17.7 % L % (18.3-44.2) [place] % (Auto) 8.0 % % (2.6-8.5) Eos % (Auto) 1.8 % % (0-4.4) Baso % (Auto) 0.5 % % (0.2-1.2) Lymph # (Auto) 2.67 K/mm3 K/mm3 (0.9-3.2) [place] # (Auto) 1.2 K/mm3 H K/mm3 (0.1-0.6) Eos # (Auto) 0.3 K/mm3 K/mm3 (0-0.3) Baso # (Auto) 0.1 K/mm3 K/mm3 (0.0-0.1) Abs Immat Gran (auto) 0.14 K/mm3 H K/mm3 (0.00-0.031) Absolute Neuts (auto) 10.7 K/mm3 H K/mm3 (1.3-6.7) Absolute Nucleated RBC 0.1 K/mm3 H K/mm3 (0.0-0.012) Nucleated RBC % 0.5 % H % (0.0-0.2) Sodium Potassium Chloride Carbon Dioxide Anion Gap BUN Creatinine Estim Creat Clear Calc Estimated GFR Glucose Uric Acid Calcium Total Bilirubin AST ALT Alkaline Phosphatase Total Protein Albumin Urine Color Pending Urine Appearance Pending Urine pH Pending Ur Specific Stout Pending Urine Protein Pending Urine Glucose (UA) Pending Urine Ketones Pending Ur Blood (Man) Pending Urine Nitrate Pending Urine Bilirubin Pending Urine Urobilinogen Pending Ur Leukocyte Esterase Pending U Random Total Protein Urine Creatinine Protein/Creat Ratio 2 RPR Pending 06/30/21 06/30/21 21:05 21:05 WBC RBC Hgb Hct MCV MCH MCHC RDW Plt Count MPV Immature Gran % (Auto) Neut % (Auto) Lymph % (Auto) Austin % (Auto) Eos % (Auto) Baso % (Auto) Lymph # (Auto) [place] # (Auto) Eos # (Auto) Baso # (Auto) Abs Immat Gran (auto) Absolute Neuts (auto) Absolute Nucleated RBC Nucleated RBC % Sodium Pending Potassium Pending Chloride Pending Carbon Dioxide Pending Anion Gap Pending BUN Pending Creatinine Pending Estim Creat Clear Calc Pending Estimated GFR Pending Glucose Pending Uric Acid Pending Calcium Pending Total Bilirubin Pending AST Pending ALT Pending Alkaline Phosphatase Pending Total Protein Pending
[2021-06-30 21:29] LABS: Alanine Aminotransferase 10 U/L (4-35); Albumin Level 3.5 g/dL (3.5-5.1); Alkaline Phosphatase 176 U/L (38-126); Anion Gap 9 mmol/L (8-16); Aspartate Amino Transferase 20 U/L (14-36); Bilirubin,Total 0.2 mg/dL (0.2-1.3); Blood Urea Nitrogen 3 mg/dL (7-17); Calcium 8.9 mg/dL (8.4-10.2); Carbon Dioxide 23 mmol/L (22-30); Chloride 102 mmol/L (98-107); Estimated Glomerular Filt Rate > 60; Glucose 100 mg/dL (65-110); Potassium 3.3 mmol/L (3.4-5.0); Sodium 134 mmol/L (137-145); Uric Acid 3.4 mg/dL (2.5-7.5)
[2021-06-30 21:30] LABS: Creatinine Urine 24.6 mg/dL; Total Protein Urine Random 16 mg/dL; Ur Ttl Prot Creatinine Ratio 0.65 mg/mg (0-0.20)
[2021-06-30] MEDS: fentaNYL CITRATE INJ (*CRX) 100 MCG/2 ML VIAL 50 MCG IV PUSH (22:14)
[2021-06-30 22:22] LABS: Specific Grav Ur 1.004 (1.001-1.035)
[2021-07-01] VITALS (30 sets, daily range): BP systolic 92–130; BP diastolic 51–80; PULSE 65–187; RESP 16–18; TEMP 36.6–36.8; O2SAT 99–100
[2021-07-01] MEDS: ONDANSETRON INJ 4 MG/2 ML VIAL IV PUSH (00:03)
[2021-07-01 00:11] LABS: Amphetamine Screen Urine Negative (Negative); Barbiturate Screen Urine Negative (Negative); Benzodiazepines Screen Urine Negative (Negative); Cannabinoid Screen Urine Positive (Negative); Cocaine Screen Urine Negative (Negative); Methadone Screen Urine Negative (Negative); Opiate Screen Urine Negative (Negative); Phencyclidine Screen Urine Negative (Negative)
[2021-07-01] MEDS: OXYTOCIN 30 UNITS/NS 500 ML 30 UNITS/500 ML BAG IV CONT (00:15)
[2021-07-01] MEDS: CALCIUM CARBONATE (TUMS) 500 MG (200 MG ELEMENTAL) PO (01:21)
[2021-07-01] MEDS: OXYTOCIN 30 UNITS/NS 500 ML 30 UNITS/500 ML BAG 125 UNITS IV CONT (03:51)
--- NOTE | 2021-07-01 04:29 | PM.OBPRVD ---
OB - Delivery Note Procedure Delivery date: 07/01/21 events: Induced HTN Intrapartal events: None Induction method: per pitocin protocol Delivery monitor: external FHT and external uterine Route of delivery: Episiotomy description: None Laceration Description: None Anesthesia type: Epidural Narrative: Mother and baby in stable condition. Cord gasses collected and handed off to staff. [place] Baby Date of : 07/01/21 Weeks of gestation at delivery: 38 Infant gender: Male presentation: vertex position: Right Occiput Anterior Placenta delivery description: Spontaneous cord vessel description: 3 Vessels and Delayed Cord Clamping
[2021-07-01] MEDS: diphenhydrAMINE HCl CAP 25 MG CAPSULE PO (05:39)
--- NOTE | 2021-07-01 06:09 | PC.NURSE ---
Patient transferred to post room #283 per wheelchair. Support person present. Oriented to unit, room, information board, rooming in, admission packet and security measures. Patient verbalizes understanding.
[2021-07-01] MEDS: IBUPROFEN 600 MG TABLET PO ×3 (08:04→19:37)
[2021-07-01] MEDS: DOCUSATE SODIUM 100 MG CAPSULE PO (08:04)
[2021-07-01] MEDS: ACETAMINOPHEN 325 MG TABLET 650 MG PO ×2 (12:19→19:11)
--- NOTE | 2021-07-01 16:30 | PC.NURSE ---
Pt introductions made and plan of care discussed per post , pain management, bottle feeding, daily care activities. PT and fob both recipients of such instructions and verbalized understanding of such care. PT and fob both received instructions per one to one discussion, mom baby care guide and demonstrations this shift. PT verbalized understanding of such care. No barriers to learning identified at this time.
[2021-07-02] VITALS: BP 117/82; PULSE 99; RESP 18; TEMP 36.9; O2SAT 99
[2021-07-02 04:47] LABS: Hematocrit 22.4 % (37.0-47.0); Hemoglobin 7.2 g/dL (12.0-15.0)
[2021-07-02] MEDS: IBUPROFEN 600 MG TABLET PO ×2 (07:32→13:50)
[2021-07-02] MEDS: POLYSACCHARIDE IRON COMPLEX 150 MG CAPSULE PO (07:32)
[2021-07-02] MEDS: ACETAMINOPHEN 325 MG TABLET 650 MG PO ×2 (07:32→13:49)
[2021-07-02] MEDS: DOCUSATE SODIUM 100 MG CAPSULE PO (07:33)
--- NOTE | 2021-07-02 08:30 | PC.NURSE ---
Pt introductions made and plan of care discussed per post , pain management, bottle feeding, daily care activities and pending discharge to home. PT and fob both recipients of such instructions and verbalized understanding of such care. PT and fob both received instructions per one to one discussion, mom baby care guide and demonstrations this shift. PT verbalized understanding of such care. No barriers to learning identified at this time.
--- NOTE | 2021-07-02 09:40 | PM.OBPNVD ---
OB - PN: Subj Subjective Date/time seen: 07/02/21 09:40 Patient comments: no complaints baby status: doing well OB - PN: Obj Data Labs CBC & Chem 7: 07/02/21 03:52 06/30/21 21:05 Labs: Laboratory Results - last 24 hr 07/02/21 03:52 Hgb 7.2 L Hct 22.4 L OB - PN A/P Plan day: 1 Plan: routine care Time Spent With Patient Time: Total time spent is greater than 50% in coordination of care (as documented) at patient's floor/unit and/or counseling patient: Time with patient: less than 15 minutes Review of Systems Review of Systems: All systems reviewed & are unremarkable except as noted in HPI and below Exam Narrative: Fundus firm and vaginal flow controlled. No lower ext redness, warmth, or edema. Negative homans. Const: General: comfortable Chest: Breast/axilla inspection: normal inspection of the breasts Resp: Effort & Inspection: normal respiratory effort Cardio: Rate: regular rate GI: GI Palp: Yes Soft to palpation Psych: Appearance: grossly normal Affect: normal affect Attitude: cooperative Thought content: Yes Normal thought content present Judgement: Good judgement present (Psych)
[2021-07-02 10:00] VITALS: BP 114/80; PULSE 82; RESP 18; TEMP 36.4; O2SAT 99
[2021-07-02 14:08] LABS: Hematocrit 24.7 % (37.0-47.0); Hemoglobin 7.7 g/dL (12.0-15.0)
[2021-07-02] MEDS: medroxyPROGESTERone ACETATE IM 150 MG/ML SYR IM (15:18)
--- NOTE | 2021-07-02 16:00 | PC.NURSE ---
PT received discharge instructions per protocol and verbalized understanding Patient viewed the discharge video Mother & Baby Care, The First Two Weeks . Patient was given the opportunity and encouraged to ask questions. Patient verbalized understanding of information shared and has been given the mother/baby guide for home reference.
--- NOTE | 2021-07-02 16:30 | PC.NURSE ---
PT discharged to home ambulatory accompanied by fob and infant and taken to waiting car. follow up appts confirmed
[2021-07-04 09:28] LABS: Rapid Plasma Reagin Non-Reactive (NonReactive)
[2021-07-04 11:39] VITALS: BP 134/90; PULSE 82; RESP 20; TEMP 36.9; O2SAT 100
--- NOTE | 2021-07-18 07:42 | PM.OBDSVD ---
DS: Admitting Diagnosis Discharge Date 07/02/21 Admitting Diagnosis Induction of Labor OB - DS: Summary OB Procedures : None and PIH Mgmt OB Procedures Intrapartum: Spontaneous Vag Delivery OB Procedures: : None Time Spent with Patient Time attestation: Total time spent providing and/or coordinating discharge services: DS: Data Data Completed and Pending Completed studies during hospitalization: Pending at discharge 07/01/21 03:10 Surgical [PTH] Routine Discharge Plan Discharge Attending physician on discharge: Jazmyne Pineda Consulting providers: Jazmyne Pineda Discharging Clinician: Jazmyne Pineda Patient Disposition: Home, Self-Care Activity: pelvic rest Diet: as tolerated Discharge Instructions: Education: Mom and Baby Guide Given to: Mother Follow-Up: Call your delivering provider's office for an appointment to be seen in: 1 Week Mom and baby [facility] the follow-up appointment. Appointment Date/Time: July 04, 2021 at 10:00 am What to expect at your follow-up visit: Blood Pressure Check Call [phone] if you are unable to keep your appointment time. BREAST CARE: * Wear a snug supportive bra. * For engorgement discomfort: Bottle Feeding: * May apply ice packs PERINEAL CARE: * Until bleeding stops, use your jesus bottle after urinating * Change your pad frequently throughout the day * You may take sitz baths several times a day (fill your bathtub with warm water and soak for 20 minutes.) Do NOT bathe in the water * No tub baths until seen by your physician - You may shower ACTIVITY: * Rest as much as possible. * Do not exercise or lift anything heavier than your baby (such as laundry or other children.) * Avoid stairs or driving as much as possible. * Do not put anything into the vagina. No douching, tampons, or sexual activity until seen by physician. NOTIFY PHYSICIAN IF YOU HAVE ANY QUESTIONS OR IF ANY OF THE FOLLOWING SYMPTOMS OCCUR: * If your perineum becomes red, swollen, or more painful than what you have experienced in the hospital. * If your vaginal bleeding becomes foul smelling. * If your vaginal bleeding becomes more heavy than a period or if your bleeding changes from pink to bright red. However, you may pass an occasional walnut-sized clot once or twice for the first week . * If you experience a sharp, shooting pain in you calves. * If you discover a hard, reddened area on your breast or if you experience flu-like symptoms. *If you have a fever of 100.4 or greater DIET: * Eat regular, well-balanced meals. * Drink plenty of fluids daily. If , drink to thirst. Patient Instructions: Antibiotic Form Stand Alone Forms: General Discharge Information Follow-up/Referrals: Jazmyne Pineda CNM [Certified Nurse Sample Examiner] - Discharge Medications: New polysaccharide iron complex 150 mg iron Capsule 150 mg PO BIDWM Qty: 60 RF: 0 Continued omeprazole 10 mg Capsule,Delayed Release(Dr/Ec) 10 mg PO DAILY RF: 0 ferrous sulfate 140 mg (45 mg iron) Tablet Extended Release 140 mg PO DAILY RF: 0 ggwpxjlt-[id number]-Ps-FA 1 mg Tablet 1 tablet PO DAILY RF: 0 Date of admission: 06/30/21 18:32 Primary Care Provider: SamirCeli Montenegro Admitting Provider: Mariangel Barrios Attending physician on admission: Mariangel Barrios. Condition: Stable
== END 2021-07-02 16:30 | disposition home or self-care (01) | DRG 560 ==
LOC: ANHLDR 19:23 → ANHOB2 07-01 06:12
PROVIDERS: Advanced Practice Midwife; Admitting Provider Obstetrics & Gynecology; PCP Nurse Practitioner Adult Health; Visit Provider Obstetrics & Gynecology
DX: O13.4 Gestational [pregnancy-induced] hypertension without significant proteinuria, complicating childbirth (principal); Z37.0 Single live birth; Z3A.38 38 weeks gestation of pregnancy; O36.5930 Maternal care for other known or suspected poor fetal growth, third trimester, not applicable or unspecified; O36.8330 Maternal care for abnormalities of the fetal heart rate or rhythm, third trimester, not applicable or unspecified
CPT/HCPCS: 36415; 80053; 80307; 81003; 82570; 84156; 84550; 85014; 85018; 85025; 86592; 86850; 86900; 86901; 88307; A9270; J1050; J2405; J2590; J2795; J3010; J7120

== ENCOUNTER 2021-10-23 19:49 | Emergency (ER) | payer OTHER, SELFPAY ==
[2021-10-23 19:52] VITALS: BP 126/77; PULSE 92; RESP 14; TEMP 37; O2SAT 100
--- NOTE | 2021-10-23 20:05 | ED.WOUNDLAC ---
HPI - Wound/Laceration General Chief Complaint: Wound/Laceration Stated Complaint: Laceration to Finger Time Seen by Provider: 10/23/21 20:06 Source: patient and RN notes reviewed Mode of arrival: ambulatory Limitations: no limitations History of Present Illness HPI narrative: 20-year-old female presents with concern for laceration to the third digit of her left hand. She reports 30 minutes prior to arrival she was using a fork to pry apart to frozen hamburger patties and the fork slipped and lacerated her finger. She denies decrease in sensation, strength, range of motion to the digit. She is up-to-date on her tetanus Related Data Home Medications Medication Instructions Recorded Confirmed sertraline [Zoloft] 50 mg PO DAILY 10/23/21 10/23/21 Allergies Allergy/AdvReac Type Severity Reaction Status Date / Time zamora flavor Allergy Unknown Swelling Verified 10/23/21 20:09 Review of Systems Review of Systems: CONSTITUTIONAL: Denies malaise, chills, sweats, or fever. SKIN: Reports laceration to the palmar aspect of the distal third digit of the left hand MUSCULOSKELETAL: Denies muscle skeletal pain NEUROLOGIC: Denies numbness, weakness All systems reviewed & are unremarkable except as noted in HPI and below PMFSH Past Medical History Medical History (Updated 10/23/21 @ 20:13 by Delores Kim NP) Intrauterine No active medical problems Family History Family History (Updated 06/14/21 @ 14:44 by Ovidio Lazaro RN) Grandparent Diabetes mellitus Social History Social History Smoking status: Current some day smoker Tobacco type: cigarettes Second hand tobacco smoke exposure: Yes Alcohol intake: never Substance use: current Substance use type: marijuana Last use: LAST TIME OCTOBER 2020 Gender identity (if verbalized by the patient): Female Spiritual care concerns: No Comments At time of signature, agree with nursing past medical, surgical, social and family history. There is no relevant family history pertinent to the presenting complaint Exam Narrative: GENERAL: Well-appearing, well-nourished, and in no acute distress. HEAD: Normocephalic EYES: PERRLA, conjunctivae clear NECK: Supple. CHEST: Speaks in full sentences. No respiratory distress. HEART: Regular rate and rhythm. Normal and equal peripheral pulses. EXTREMITIES: Left hand and digits of hand have normal strength and sensation. 5/5 strength with digit flexion, extension. Range of motion grossly normal. No clubbing, cyanosis, or edema noted. Small amount of ecchymosis noted to the tip of the digit with tenderness. Good capillary refill and radial pulse. Distal capillary refill less than 3 seconds. Patient is right/left hand dominant SKIN: Warn, dry, intact, pink. 0.5 cm superficial laceration noted to the tip of the third digit of the left hand, well approximated, very small amount of bleeding NEURO: Alert and oriented x3. PSYCH: Normal mood and affect Course Course Emergency Course: Patient is aware of diagnosis, understands and agrees to treatment plan. Anticipatory guidance given. Patient agrees to follow-up as directed and is aware of reasons to seek care at the emergency department. Portions of this record may have been created with voice recognition software Level of Care: Express Care Visit Vital Signs Vital signs: Vital Signs Temperature 98.6 F 10/23/21 19:52 Pulse Rate 92 10/23/21 19:52 Respiratory Rate 14 10/23/21 19:52 Blood Pressure 126/77 10/23/21 19:52 Pulse Oximetry 100 10/23/21 19:52 Temperature 98.6 F 10/23/21 19:52 Pulse Rate 92 10/23/21 19:52 Respiratory Rate 14 10/23/21 19:52 Blood Pressure 126/77 10/23/21 19:52 Pulse Oximetry 100 10/23/21 19:52 Reviewed. Procedures Laceration Laceration 1: Date: 10/23/21 Time: 20:09 Site: hand Side (If applicable): left Size (cm):
== END 2021-10-23 20:20 | disposition home or self-care (01) ==
PROVIDERS: Emergency Provider Nurse Practitioner
DX: S61.213A Laceration without foreign body of left middle finger without damage to nail, initial encounter (principal); W45.8XXA Other foreign body or object entering through skin, initial encounter; F17.210 Nicotine dependence, cigarettes, uncomplicated
CPT/HCPCS: 12001; 99212; G0463

== ENCOUNTER 2022-03-20 19:33 | Emergency (ER) | payer OTHER, SELFPAY ==
--- NOTE | 2022-03-20 19:35 | ED.NAVMDI ---
HPI - Nausea/Vomiting/Diarrhea General Chief complaint: Nausea/Vomiting/Diarrhea Stated complaint: Nausea/Vomiting Time Seen by Provider: 03/20/22 19:35 Source: patient and RN notes reviewed History of Present Illness HPI Narrative: Patient is a 21-year-old female who presents the urgent care with complaints of nausea, vomiting and headache. Patient states her headache started yesterday in the frontal region and she had 1 episode of vomiting. Patient states that she has a today both breakfast and dinner without any vomiting. States that she did smoke some marijuana which help with the headache. States that she was sent home from work due to her symptoms. Denies of any fever or upper respiratory complaints. No other acute complaints. No acute distress noted. Patient aware of the plan of care. Some parts of this dictation were generated by voice recognition software and may contain typographical and/or grammatical inaccuracies. Related Data Home Medications Medication Instructions Recorded Confirmed norethindrone 1 mg-ethinyl 1 tablet PO DAILY 03/20/22 03/20/22 estradiol 20 mcg (21)-iron 75 mg (7) tablet (07/21 (28)) Allergies Allergy/AdvReac Type Severity Reaction Status Date / Time zamora flavor Allergy Unknown Swelling Verified 03/20/22 19:49 Review of Systems Review of Systems: CONSTITUTIONAL: Denies fever, chills, or sweats. EYES: Denies visual changes, redness, or discharge. ENT: Denies rhinorrhea, congestion, sore throat, or otalgia. CARDIOVASCULAR: Denies chest pain, palpitations, or edema. RESPIRATORY: Denies cough or dyspnea. GASTROINTESTINAL: Reports of nausea, vomiting without abdominal pain GENITOURINARY: Denies dysuria or hematuria. SKIN: Denies rash or itching. MUSCULOSKELETAL: Denies back pain, joint pain, or myalgia. NEUROLOGIC: Reports of headache All other systems reviewed are negative, except as documented in HPI. [facility] Past Medical History Medical History (Updated 03/20/22 @ 20:11 by BRIAN Rios) Intrauterine No active medical problems Family History Family History (Updated 06/14/21 @ 14:44 by Ovidio Lazaro RN) Grandparent Diabetes mellitus Social History Social History Smoking status: Current some day smoker Tobacco type: cigarettes Second hand tobacco smoke exposure: Yes Alcohol intake: never Substance use: current Substance use type: marijuana Last use: LAST TIME OCTOBER 2020 Gender identity (if verbalized by the patient): Female Spiritual care concerns: No Comments At the time of my signature, I reviewed and agree with the nursing past medical, surgical, social, and family history. There is no relevant family history pertinent to the patient complaint. Exam Narrative: GENERAL: This is a well-nourished, well-developed patient, in no apparent distress. HEAD: normocephalic, atraumatic. EYES: PERRL. Sclera clear/white. Vision is grossly intact. EARS: External ears normal, auditory canals clear and without drainage, TMs normal without perforation. Hearing grossly intact. NOSE: External nose normal with no obvious nasal discharge, nares without redness, no rhinorrhea. THROAT: Mucous membranes moist, posterior pharynx clear. Moderate postnasal drainage NECK: Neck supple CARDIOVASCULAR: Regular rate and rhythm without murmurs, gallops, or rubs. RESPIRATORY: Clear to auscultation. Breath sounds equal bilaterally. No wheezes, rales, or rhonchi. GASTROINTESTINAL: Abdomen soft, mild diffuse suprapubic tenderness, nondistended. Bowel sounds are active. No guarding. SKIN: warm, intact with no suspicious lesions or rash, good texture and turgor. NEURO: awake, alert, and oriented to person, place and time. There were no obvious focal neurologic abnormalities. EXTREMITIES: No clubbing, cyanosis, or edema. BACK: Mild left CVA tenderness Course Course Level of Care: Express Ca
[2022-03-20 19:42] VITALS: BP 112/73; PULSE 83; RESP 16; TEMP 36.9; O2SAT 100
== END 2022-03-20 20:15 | disposition home or self-care (01) ==
PROVIDERS: Emergency Provider Nurse Practitioner Family
DX: R11.2 Nausea with vomiting, unspecified (principal); F17.210 Nicotine dependence, cigarettes, uncomplicated
CPT/HCPCS: 81003; 99213; G0463

== ENCOUNTER 2022-07-13 08:09 | Emergency (ER) | payer OTHER, SELFPAY ==
[2022-07-13 08:15] VITALS: BP 122/83; PULSE 91; RESP 16; TEMP 36.7; O2SAT 100
--- NOTE | 2022-07-13 08:17 | ED.EYEPROB ---
HPI - Eye Problem General Chief complaint: Eye Problems Stated complaint: Eye Problem Time Seen by Provider: 07/13/22 08:17 Source: patient and RN notes reviewed History of Present Illness HPI Narrative: patient is a 21-year-old female presents to urgent care with complaints of right upper eyelid swelling and pain. Patient states it started 2 days ago after she scratched the eye. Patient states is much more swollen this morning when she woke up which is gone down. Reports of some drainage. Denies any known injury to the. Also reports a fractured posterior right lower molar. Patient states she has called an oral surgeon wanted to make sure it was not infected . Patient has tried Tylenol. No other acute complaints. Denies fever, nausea or vomiting. No acute distress noted. Patient aware of the plan of care. Some parts of this dictation were generated by voice recognition software and may contain typographical and/or grammatical inaccuracies. Related Data Home Medications Medication Instructions Recorded Confirmed norethindrone 1 mg-ethinyl 1 tablet PO DAILY 03/20/22 07/13/22 estradiol 20 mcg (21)-iron 75 mg (7) tablet (07/21 (28)) Allergies Allergy/AdvReac Type Severity Reaction Status Date / Time zamora flavor Allergy Unknown Swelling Verified 07/13/22 08:23 Review of Systems Review of Systems: CONSTITUTIONAL: Denies fever, chills, or sweats. EYES: reports of mild swelling and redness to the right upper eyelid with scant drainage ENT: Denies rhinorrhea, congestion, sore throat, or otalgia. reports right lower fractured tooth CARDIOVASCULAR: Denies chest pain, palpitations, or edema. RESPIRATORY: Denies cough or dyspnea. GASTROINTESTINAL: Denies abdominal pain, nausea, vomiting, or diarrhea. GENITOURINARY: Denies dysuria or hematuria. SKIN: Denies rash or itching. MUSCULOSKELETAL: Denies back pain, joint pain, or myalgia. NEUROLOGIC: Denies headache, numbness, or weakness. All other systems reviewed are negative, except as documented in HPI. [facility] Past Medical History Medical History (Updated 07/13/22 @ 08:24 by BRIAN Rios) Intrauterine No active medical problems Family History Family History (Updated 06/14/21 @ 14:44 by Ovidio Lazaro RN) Grandparent Diabetes mellitus Social History Social History Smoking status: Current some day smoker Tobacco type: cigarettes Second hand tobacco smoke exposure: Yes Alcohol intake: never Substance use: current Substance use type: marijuana Last use: LAST TIME OCTOBER 2020 Gender identity (if verbalized by the patient): Female Spiritual care concerns: No Comments At the time of my signature, I reviewed and agree with the nursing past medical, surgical, social, and family history. There is no relevant family history pertinent to the patient complaint. Exam Narrative: GENERAL: This is a well-nourished, well-developed patient, in no apparent distress. HEAD: normocephalic, atraumatic. EYES: PERRL. Sclera clear/white. Vision is grossly intact. mild edema and erythema noted to right upper eyelid with scant drainage EARS: External ears normal NOSE: External nose normal with no obvious nasal discharge, nares without redness, no rhinorrhea. THROAT: Mucous membranes moist dENTAL: fractured posterior cusp to tooth number 31 without surrounding erythema or edema. No notable abscess or infection NECK: Neck supple, SKIN: warm, intact with no suspicious lesions or rash, good texture and turgor. NEURO: awake, alert, and oriented to person, place and time. There were no obvious focal neurologic abnormalities. EXTREMITIES: No clubbing, cyanosis, or edema. Course Course Level of Care: Express Care Visit Vital Signs Vital signs: Vital Signs Temperature 98.1 F 07/13/22 08:15 Pulse Rate 91 07/13/22 08:15 Respiratory Rate 16 07/13/22 08:15 Blood Press
== END 2022-07-13 08:30 | disposition home or self-care (01) ==
PROVIDERS: Emergency Provider Nurse Practitioner Family
DX: H57.11 Ocular pain, right eye (principal); H02.89 Other specified disorders of eyelid; Z72.0 Tobacco use
CPT/HCPCS: 99213; G0463

== ENCOUNTER 2022-08-31 17:08 | Emergency (ER) | payer OTHER, SELFPAY ==
[2022-08-31 17:18] VITALS: BP 134/83; PULSE 90; RESP 18; TEMP 36.8; O2SAT 100
--- NOTE | 2022-08-31 17:20 | ED.CHESTPAIN ---
HPI - Chest Pain General Chief Complaint: Chest Pain Stated Complaint: Chest Pain/Dizziness Source: patient and RN notes reviewed History of Present Illness HPI narrative: 21-year-old female presents to urgent care with complaints of intermittent chest pain, shortness of breath, and dizziness. Patient states this has been going on for quite some time but over the last 2 weeks it has gotten worse. Patient states she has fallen twice in the last 4 days, hitting her head. Denies any LOC or neck pain. Patient states her chest pain, shortness of breath, and dizziness occur with any activity. Patient states she is unable to hold her 20 lb child out straight due to weakness in her arms. Patient states just walking a short distance she will get sweaty and feels her heart beating quickly. Patient is 35 kg but states she is currently on a medication to help increase her appetite. Patient reports a sufficient diet daily but states she continues to lose weight. He vomiting but states she has diarrhea and contributes that to her medication. Some parts of this dictation were generated by voice recognition software and may contain typographical and/or grammatical inaccuracies. Related Data Home Medications Medication Instructions Recorded Confirmed drospirenone (contraceptive) 4 mg 4 mg DIRECTED 08/31/22 08/31/22 (28) tablet (Slynd) mirtazapine 7.5 mg tablet 7.5 mg DIRECTED 08/31/22 08/31/22 venlafaxine 75 mg capsule,extended 75 mg PO DIRECTED 08/31/22 08/31/22 release 24 hr Allergies Allergy/AdvReac Type Severity Reaction Status Date / Time zamora flavor Allergy Unknown Swelling Verified 07/13/22 08:23 Review of Systems Review of Systems: CONSTITUTIONAL: Denies fever, chills, or sweats. EYES: Denies visual changes, redness, or discharge. ENT: Denies otalgia and sore throat CARDIOVASCULAR:reports chest pains and palpitations RESPIRATORY: Reports dyspnea with exertion. Denies cough GASTROINTESTINAL: Reports diarrhea. GENITOURINARY: Denies dysuria or hematuria. SKIN: Denies rash or itching. MUSCULOSKELETAL: Reports weakness generalized. NEUROLOGIC: Reports headache and dizziness [facility] Past Medical History Medical History (Updated 08/31/22 @ 18:33 by Charissa Tee APRN) Intrauterine No active medical problems Family History Family History (Updated 06/14/21 @ 14:44 by Ovidio Lazaro RN) Grandparent Diabetes mellitus Social History Social History Smoking status: Current some day smoker Tobacco type: cigarettes Second hand tobacco smoke exposure: Yes Alcohol intake: never Substance use: current Substance use type: marijuana Last use: LAST TIME OCTOBER 2020 Gender identity (if verbalized by the patient): Female Spiritual care concerns: No Comments At the time of my signature, I reviewed and agree with the nursing past medical, surgical, social, and family history. There is no relevant family history pertinent to the patient complaint. Exam Narrative: GENERAL: This is a malnourished, significantly underweight pt, in no apparent distress. HEAD: normocephalic, atraumatic. EYES: PERRL. Sclera clear/white. Vision is grossly intact. EARS: External ears normal, auditory canals clear and without drainage, TMs normal without perforation. Hearing grossly intact. NOSE: External nose normal with no obvious nasal discharge, nares without redness, no rhinorrhea. THROAT: Mucous membranes moist, posterior pharynx clear. NECK: Neck supple, non-tender without lymphadenopathy, masses or thyromegaly. CARDIOVASCULAR: Regular rate and rhythm without murmurs, gallops, or rubs. RESPIRATORY: Clear to auscultation. Breath sounds equal bilaterally. No wheezes, rales, or rhonchi. GASTROINTESTINAL: Abdomen soft, non-tender, nondistended. Bowel sounds are active. No hepato-splenomegaly, or palpable masses. No guarding. SKIN: Yellow bruising to lef
--- NOTE | 2022-08-31 17:48 | ECG_ITS ---
Measurements Intervals [place] Rate: 97 P: 68 ID: [id number] QRS: 86 QRSD: 91 T: 18 QT: 343 QTc: 436 Interpretive Statements SINUS RHYTHM WITH SINUS ARRHYTHMIA LEFT ATRIAL ENLARGEMENT INCOMPLETE RIGHT BUNDLE BRANCH BLOCK BORDERLINE R WAVE PROGRESSION, ANTERIOR LEADS BORDERLINE ST-T WAVE ABNORMALITY- ANT/INF LEADS BASELINE ARTIFACT- I, III BORDERLINE ECG COMPARED TO ECG 08/31/2022 18:17:46 NO SIGNIFICANT CHANGES Electronically Signed On 09-01-2022 6:26:39 RESPIRATORY CARE TECHNICIAN by Reji Turner D.O.
[2022-08-31 17:58] VITALS: BP 124/78; PULSE 81
[2022-08-31 18:00] VITALS: BP 125/86; PULSE 94
[2022-08-31 18:02] VITALS: BP 128/85; PULSE 100
== END 2022-08-31 18:36 | disposition short-term general hospital (02) ==
PROVIDERS: Emergency Provider Nurse Practitioner Family; PCP Hospitalist
DX: R07.9 Chest pain, unspecified (principal); R06.02 Shortness of breath; R42 Dizziness and giddiness; F17.210 Nicotine dependence, cigarettes, uncomplicated
CPT/HCPCS: 93005; 99213; G0463

== ENCOUNTER 2022-08-31 19:32 | Emergency (ER) | payer OTHER, SELFPAY ==
--- NOTE | ~2022-08-31 | XR_ITS ---
EXAMINATION: XR chest 2V DATE: 08/31/2022 21:48 INDICATION: Chest pain and shortness of breath TECHNIQUE: PA and lateral views of the chest are obtained. COMPARISON: 07/15/2015 FINDINGS: The lungs are free of acute opacities. No pleural effusion or pneumothorax. The cardiomedia stinal silhouette is normal. The visualized bones and soft tissues are unremarkable. IMPRESSION: 1. No acute cardiopulmonary abnormality. Reviewed, dictated and finalized at location F. SROOM INSTRUCTIONAL AIDE
--- NOTE | ~2022-08-31 | CT_ITS ---
Non-contrast Head CT History: Head trauma Technique: Axial non-contrast imaging of the brain was performed. Dose reduction technique was used on this scan by utilizing automated exposure control and iterative reconstruction technique. The dose -length product (DLP) was 529.67 mGy-cm. Findings: There is no evidence of intracranial hemorrhage, mass lesion, or acute infarct. Brain par enchyma appears normal. The ventricles and subarachnoid spaces are normal in size. The calvarium ap pears normal. The visualized paranasal sinuses and mastoid air cells are clear. Impression: No significant abnormality seen. Reviewed, dictated and finalized at [facility]. R TRIMMER Impression: No significant abnormality seen.
[2022-08-31 19:33] VITALS: BP 130/87; PULSE 130; RESP 16; TEMP 36.6; O2SAT 99
--- NOTE | 2022-08-31 20:17 | ECG_ITS ---
Measurements Intervals [place] Rate: 83 P: 57 MI: 168 QRS: 79 QRSD: 90 T: 53 QT: 365 QTc: 429 Interpretive Statements SINUS RHYTHM WITH SINUS ARRHYTHMIA POSSIBLE LEFT ATRIAL ENLARGEMENT INCOMPLETE RIGHT BUNDLE BRANCH BLOCK BORDERLINE ECG NO PREVIOUS ECG AVAILABLE FOR COMPARISON Electronically Signed On 09-01-2022 6:25:56 [employer] by Reji Turner D.O.
[2022-08-31 20:37] LABS: Basophils Absolute Auto 0.1 K/mm3 (0.0-0.1); Basophils Percent Auto 1.3 % (0.2-1.2); Eosinophils Absolute Auto 0.7 K/mm3 (0-0.3); Hematocrit 41.2 % (37.0-47.0); Hemoglobin 13.2 g/dL (12.0-15.0); Immature Granulocyte Absolute 0.02 K/mm3 (0.00-0.031); Immature Granulocyte Percent A 0.2 % (0-0.5); Lymphocytes Absolute Auto 2.78 K/mm3 (0.9-3.2); Lymphocytes Percent Auto 33.9 % (18.3-44.2); Mean Corpuscular Hemoglobin 31.1 pg (26-34); Mean Corpuscular Volume 96.9 fl (80-100); Mean Platelet Volume 10.6 fl (7.4-10.4); Monocytes Absolute Auto 0.5 K/mm3 (0.1-0.6); Monocytes Percent Auto 5.7 % (2.6-8.5); Neutrophils Absolute Auto 4.2 K/mm3 (1.3-6.7); Neutrophils Percent Auto 50.9 % (45.5-73.1); Platelet Count Result 297 k/mm3 (150-375); Red Blood Count 4.25 M/mm3 (4.2-5.4); Red Cell Distribution Width 13.2 % (11.5-14.5); White Blood Count 8.2 K/mm3 (4.5-10.0)
[2022-08-31 20:50] LABS: Alanine Aminotransferase 23 U/L (6-35); Albumin Level 5.1 g/dL (3.5-5.1); Alkaline Phosphatase 55 U/L (38-126); Anion Gap 9 mmol/L (8-16); Aspartate Amino Transferase 29 U/L (14-36); Bilirubin,Total 0.3 mg/dL (0.2-1.3); Blood Urea Nitrogen 16 mg/dL (7-17); Carbon Dioxide 29 mmol/L (22-30); Chloride 102 mmol/L (98-107); Estimated CRCL calculation 62 ml/min; Estimated Glomerular Filt Rate > 60; Glucose 77 mg/dL (65-110); Lipase 116 U/L (23-300); Potassium 3.7 mmol/L (3.4-5.0); Sodium 140 mmol/L (137-145)
[2022-08-31 20:52] LABS: Prothrombin Time 12.9 Seconds (11.1-14.7)
[2022-08-31 21:01] LABS: Troponin I < 0.012 ng/mL (0.000-0.034)
[2022-08-31 23:57] VITALS: PULSE 91; RESP 11
[2022-09-01] VITALS (14 sets, daily range): BP systolic 106–122; BP diastolic 69–92; PULSE 71–119; RESP 12–23; TEMP 36.6–37; O2SAT 98–100
[2022-09-01] MEDS: SODIUM CHLORIDE 0.9% IV 1,000 ML 999 ML IV CONT (00:40)
[2022-09-01 00:51] LABS: Troponin I < 0.012 ng/mL (0.000-0.034)
--- NOTE | 2022-09-01 01:36 | ED.GENADULT ---
HPI - General Adult General Chief complaint: Unspecified Stated complaint: SOB, CP, head injury Time Seen by Provider: 08/31/22 23:52 History of Present Illness HPI narrative: Patient is a 21-year-old female who presents the emergency department with chief complaint dizziness palpitations chest pain. Patient states that for some time she has been having discomfort in her chest and is also been having episodes where she feels foggy and lightheaded patient states that she fell a couple times and struck her left forehead the patient reports that she is able to ambulate reports that she notices that her heart starts beating fast particular whenever she is standing up. Patient reports that she has not followed up with her primary care provider and was seen at an urgent care today and directed to come to the emergency department. Related Data Home Medications Medication Instructions Recorded Confirmed drospirenone (contraceptive) 4 mg 4 mg DIRECTED 08/31/22 08/31/22 (28) tablet (Slynd) mirtazapine 7.5 mg tablet 7.5 mg DIRECTED 08/31/22 08/31/22 venlafaxine 75 mg capsule,extended 75 mg PO DIRECTED 08/31/22 08/31/22 release 24 hr Allergies Allergy/AdvReac Type Severity Reaction Status Date / Time zamora flavor Allergy Unknown Swelling Verified 07/13/22 08:23 Review of Systems Review of Systems: A 10 system review of systems was completed on the patient and is negative except for what is stated in the HPI. Nursing and ancillary documentation was reviewed. PMFSH Past Medical History Medical History Intrauterine No active medical problems Family History Family History Grandparent Diabetes mellitus Social History Social History Smoking status: Current some day smoker Tobacco type: cigarettes Second hand tobacco smoke exposure: Yes Alcohol intake: never Substance use: current Substance use type: marijuana Last use: LAST TIME OCTOBER 2020 Gender identity (if verbalized by the patient): Female Spiritual care concerns: No Exam Narrative: GENERAL: Well-appearing, well-nourished, and in no acute distress. HEAD: Normocephalic, there is a bruise present in the left forehead. EYES: PERRLA and EOMI. ENT: Nares clear, no rhinorrhea or epistaxis. Mucous membranes moist. NECK: Supple. CHEST: Clear to auscultation. No respiratory distress. HEART: Regular rate and rhythm. No murmur heard. Normal peripheral pulses. ABDOMEN: Soft, nontender, nondistended, normal active bowel sounds. EXTREMITIES: Normal range of motion. No edema. SKIN: Warm, dry, no rash. NEURO: No focal deficits. Alert and oriented x3. PSYCH: Normal mood and affect. Course Vital Signs Vital signs: Vital Signs Temperature 36.6 C 08/31/22 19:33 Pulse Rate 130 H 08/31/22 19:33 Respiratory Rate 16 08/31/22 19:33 Blood Pressure 130/87 08/31/22 19:33 Pulse Oximetry 99 08/31/22 19:33 Oxygen Delivery Room Air 08/31/22 19:33 Temperature 37.0 C 09/01/22 01:49 Pulse Rate 97 09/01/22 01:49 Respiratory Rate 20 09/01/22 01:49 Blood Pressure 111/75 09/01/22 01:49 Pulse Oximetry 100 09/01/22 01:49 Oxygen Delivery Room Air 08/31/22 19:33 Medical Decision Making MDM Narrative Medical decision making narrative: Differential diagnosis includes dysrhythmia, electrolyte abnormality, infection, space-occupying lesion in the brain. CT head showed no evidence of acute abnormality chest x-ray shows no focal findings laboratory studies were within normal limits including troponin that was undetectable potassium was 3.7 white blood cell count was normal at 8.2 hemoglobin was 13.2. EKG is sinus rhythm rate of [address] elevation or ST depression Vital Signs Vital Signs: Vital Signs Temperature 36.6 C 0
[2022-09-01 02:50] LABS: Troponin I < 0.012 ng/mL (0.000-0.034)
== END 2022-09-01 02:19 | disposition home or self-care (01) ==
PROVIDERS: Emergency Provider Emergency Medicine; PCP Hospitalist
DX: R55 Syncope and collapse (principal); R00.2 Palpitations; F17.210 Nicotine dependence, cigarettes, uncomplicated; F12.90 Cannabis use, unspecified, uncomplicated
CPT/HCPCS: 36415; 70450; 71046; 80053; 83690; 84484; 85025; 85610; 85730; 93005; 96360; 99284; J7030

== ENCOUNTER 2022-12-29 18:09 | Emergency (ER) | payer OTHER, SELFPAY ==
[2022-12-29 18:14] VITALS: BP 115/72; PULSE 82; RESP 18; TEMP 37.4; O2SAT 100
--- NOTE | 2022-12-29 18:46 | ED.SKABFB ---
HPI - Skin/Abscess/Foreign Bdy General Chief complaint: Skin/Abscess/Foreign Body Stated complaint: Skin Sore/Left Ear Source: patient and RN notes reviewed History of Present Illness HPI narrative: 22-year-old male presents urgent care with complaints of left ear pain. Patient states it started approximately 2 weeks ago when she was in [place], [place]. Patient states she thought she 1st had water in her ear but then her symptoms and not go away. Patient reports feeling a bit like sore in left ear. Patient reports most of her pain is behind her left ear. Denies any fevers, chills, congestion, or sore throat. She is placed on iodine on her zit. Related Data Home Medications Medication Instructions Recorded Confirmed duloxetine 30 mg capsule,delayed 30 mg PO BID 12/29/22 12/29/22 release quetiapine 25 mg tablet 25 mg PO HS 12/29/22 12/29/22 Allergies Allergy/AdvReac Type Severity Reaction Status Date / Time zamora flavor Allergy Unknown Swelling Verified 12/29/22 18:26 Review of Systems Review of Systems: CONSTITUTIONAL: Denies fever, chills, or sweats. EYES: Denies visual changes, redness, or discharge. ENT: Left ear pain CARDIOVASCULAR: Denies chest pain, palpitations, or edema. RESPIRATORY: Denies cough or dyspnea. GASTROINTESTINAL: Denies abdominal pain, nausea, vomiting, or diarrhea. GENITOURINARY: Denies dysuria or hematuria. SKIN: Denies rash or itching. MUSCULOSKELETAL: Denies back pain, joint pain, or myalgia. NEUROLOGIC: Denies headache, numbness, or weakness. Pertinent positives per HPI. [facility] Past Medical History Medical History Intrauterine No active medical problems Family History Family History Grandparent Diabetes mellitus Social History Social History Smoking status: Current some day smoker Tobacco type: cigarettes Second hand tobacco smoke exposure: Yes Alcohol intake: never Substance use: current Substance use type: marijuana Last use: LAST TIME OCTOBER 2020 Gender identity (if verbalized by the patient): Female Spiritual care concerns: No Comments At the time of my signature, I reviewed and agree with the nursing past medical, surgical, social, and family history. There is no relevant family history pertinent to the patient complaint. Exam Narrative: GENERAL: This is a well-nourished, well-developed patient, in no apparent distress. HEAD: normocephalic, atraumatic. EYES: Sclera clear/white. Vision is grossly intact. EARS: Erythema and tenderness noted to left posterior ear. Small zit-like pustule noted to distal canal of left ear. Left ear canal noted to be erythremic. TM pale pink and intact. NOSE: External nose normal with no obvious nasal discharge, nares without redness, no rhinorrhea. THROAT: Mucous membranes moist, posterior pharynx clear. NECK: Neck supple, non-tender without lymphadenopathy, masses or thyromegaly. CARDIOVASCULAR: Regular rate and rhythm without murmurs, gallops, or rubs. RESPIRATORY: Clear to auscultation. Breath sounds equal bilaterally. No wheezes, rales, or rhonchi. GASTROINTESTINAL: Abdomen soft, non-tender, nondistended. Bowel sounds are active. No hepato-splenomegaly, or palpable masses. No guarding. SKIN: warm, intact with no suspicious lesions or rash, good texture and turgor. NEURO: awake, alert, and oriented to person, place and time. There were no obvious focal neurologic abnormalities. Course Course Level of Care: Express Care Visit Vital Signs Vital signs: Vital Signs Temperature 99.3 F 12/29/22 18:14 Pulse Rate 82 12/29/22 18:14 Respiratory Rate 18 12/29/22 18:14 Blood Pressure 115/72 12/29/22 18:14 Pulse Oximetry 100 12/29/22 18:14 Oxygen Delivery Room Air 12/29/22 18:14 Temperature 99.3
== END 2022-12-29 19:01 | disposition home or self-care (01) ==
PROVIDERS: Emergency Provider Nurse Practitioner Family; PCP Hospitalist
DX: L03.811 Cellulitis of head [any part, except face] (principal); F17.210 Nicotine dependence, cigarettes, uncomplicated
CPT/HCPCS: 99213; G0463

== ENCOUNTER 2023-02-05 14:01 | Outpatient (CLI) | payer OTHER, SELFPAY ==
--- NOTE | ~2023-02-05 | US_ITS ---
EXAMINATION: US breast BI limited HISTORY: Palpable lumps at the 12:00 and 6:00 location of the right breast in the upper inner and low er outer quadrant of the left breast. TECHNIQUE: Limited bilateral breast ultrasound is performed. COMPARISON: 08/31/2020 FINDINGS: There is no evidence of focal abnormal cystic or solid mass in the vicinity of the palpable abnormalities of either breast. IMPRESSION: No specific sonographic correlate is identified for the reported palpable abnormality of concern in e ither breast. Further evaluation at this time should be based on clinical assessment. Continued follo w-up physical examination is recommended. BI-RADS Category 1: Negative Reviewed, dictated and finalized at location A. IMPRESSION: No specific sonographic correlate is identified for the reported palpable abnor mality of concern in either breast. Further evaluation at this time should be b ased on clinical assessment. Continued follow-up physical examination is recomm ended. BI-RADS Category 1: Negative
== END 2023-02-05 14:02 | disposition home or self-care (01) ==
PROVIDERS: PCP Hospitalist; Visit Provider Nurse Practitioner
DX: N63.0 Unspecified lump in unspecified breast (principal)
CPT/HCPCS: 76642

== ENCOUNTER 2023-04-09 10:45 | Emergency (ER) | payer OTHER, SELFPAY ==
[2023-04-09 10:51] VITALS: BP 115/74; PULSE 100; RESP 16; TEMP 37.2; O2SAT 100
--- NOTE | 2023-04-09 10:59 | ED.GENADULT ---
HPI - General Adult General Chief complaint: Urogenital-Female Stated complaint: Flank Pain Time Seen by Provider: 04/09/23 11:00 Source: patient, RN notes reviewed and old records reviewed Mode of arrival: ambulatory Limitations: no limitations History of Present Illness HPI narrative: 22 year old female who presents to [facility] care with complaints of right sided rib pain which started in her arm pit and now is in her right lower rib areas. 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 Patient denies any shortness of breath reports pain in lower lateral rib area with movement. Patient denies any burning with urination or pain with urination does state that she is going more frequently. Patient did take a muscle relaxer that she has previous been prescribed. MD complaint: lower lateral rib pain Onset (ago): day(s) (this morning) Severity scale (1-10): 8 Treatments prior to arrival: other (muscle relaxer) Related Data Home Medications Medication Instructions Recorded Confirmed duloxetine 30 mg capsule,delayed 30 mg PO BID 12/29/22 04/09/23 release quetiapine 25 mg tablet 25 mg PO HS 12/29/22 04/09/23 drospirenone (contraceptive) 4 mg 4 mg PO DAILY 04/09/23 04/09/23 (28) tablet (Slynd) tizanidine 2 mg tablet 6 mg PO Q6-8H PRN Muscle Pain 04/09/23 04/09/23 Allergies Allergy/AdvReac Type Severity Reaction Status Date / Time zamora flavor Allergy Unknown Swelling Verified 12/29/22 18:26 Review of Systems Review of Systems: CONSTITUTIONAL: Denies fever, chills, or sweats. EYES: Denies visual changes, redness, or discharge. ENT: Denies rhinorrhea, congestion, sore throat, or otalgia. CARDIOVASCULAR: Denies chest pain, palpitations, or edema. RESPIRATORY: Denies cough or dyspnea. GASTROINTESTINAL: Denies abdominal pain, nausea, vomiting, or diarrhea. GENITOURINARY: Denies dysuria or hematuria.reports frequency SKIN: Denies rash or itching. MUSCULOSKELETAL: Denies back pain, joint pain, or myalgia, reports right lateral rib pain NEUROLOGIC: Denies headache, numbness, or weakness. PSYCHIATRIC: Positive for history of anxiety or depression. All systems reviewed & are unremarkable except as noted in HPI and below PMFSH Past Medical History Medical History (Updated 04/10/23 @ 07:59 by Thania Parra NP) Intrauterine No active medical problems induced hypertension Family History Family History Grandparent Diabetes mellitus Social History Social History Smoking status: Current some day smoker Tobacco type: cigarettes Second hand tobacco smoke exposure: Yes Alcohol intake: never Substance use: current Substance use type: marijuana Last use: LAST TIME OCTOBER 2020 Gender identity (if verbalized by the patient): Female Spiritual care concerns: No Comments At time of signature, agree with nursing past medical, surgical, social and family history. There is no relevant family history pertinent to the presenting complaint Exam Narrative: GENERAL: Well-appearing, fair-nourished, and in no acute distress. HEAD: Normocephalic, atraumatic. EYES: PERRLA and EOMI. ENT: Nares clear, no rhinorrhea or epistaxis. Mucous membranes moist.TM's normal throat pink with no swelling NECK: Supple.no lymphadenopathy CHEST: Clear to auscultation. No respiratory distress. SAO2 100% on room air, right lateral rib pain increases with movement no dyspnea noted HEART: Regular rate and rhythm. No murmur heard. Normal peripheral pulses. ABDOMEN: Soft, nontender, nondistended, normal active bowel sounds. EXTREMITIES: Normal range of motion. No edema. SKIN: Warm, dry, no rash. NEURO: No focal deficits. Alert and oriented x3. Course Course Emergency Course: Patient is aware of diagnosis, understands and agrees to treatment plan.? Anticipatory guidance given.?
== END 2023-04-09 11:34 | disposition home or self-care (01) ==
PROVIDERS: Emergency Provider Registered Nurse; PCP Hospitalist
DX: S29.011A Strain of muscle and tendon of front wall of thorax, initial encounter (principal); X50.0XXA Overexertion from strenuous movement or load, initial encounter; Y99.0 Civilian activity done for income or pay; F17.210 Nicotine dependence, cigarettes, uncomplicated; F12.90 Cannabis use, unspecified, uncomplicated
CPT/HCPCS: 81003; 99213; G0463

== ENCOUNTER 2023-05-30 18:15 | Emergency (ER) | payer OTHER, SELFPAY ==
--- NOTE | ~2023-05-30 | XR_ITS ---
EXAM: XR foot RT min 3V DATE: 05/30/2023 18:37 HISTORY: STUBBING INJURY TO DIGIT 2 3 . COMPARISON: None available. FINDINGS: Normal mineralization. No fracture or dislocation. No lytic or blastic lesion. Joint space s are maintained. No erosion or periosteal change. Soft tissues within normal limits. IMPRESSION: No acute osseous finding in the right foot. Reviewed, dictated and finalized at location [facility] [facility]
--- NOTE | 2023-05-30 18:17 | ED.LOWEXIN ---
HPI - Extremity Injury (Lower) General Chief Complaint: Extremity Injury, Lower Stated Complaint: Toe Injury on Right Foot Time Seen by Provider: 05/30/23 18:17 Source: patient Mode of arrival: ambulatory Limitations: no limitations History of Present Illness HPI Narrative: Oswaldo is a 22-year-old female patient presenting to clinic today with complaints of a 2nd and 3rd toe injury to her right foot. She reports she was kicking the ball with her son last night and accidentally kicked the door frame. Is having pain to the 2nd and 3rd toes on the right foot. Bruising noted over the 2nd toe. Is having numbness and tingling as well as difficulty moving them. Related Data Home Medications Medication Instructions Recorded Confirmed drospirenone (contraceptive) 4 mg 4 mg PO DAILY 04/09/23 05/30/23 (28) tablet (Slynd) methylphenidate HCl 18 mg 18 mg PO DAILY 05/30/23 05/30/23 tablet,extended release 24 hr (Concerta) Allergies Allergy/AdvReac Type Severity Reaction Status Date / Time zamora flavor Allergy Unknown Swelling Verified 05/30/23 18:25 Review of Systems Review of Systems: Pertinent positives per HPI. Patient denies any fever, chills, rash, headache, visual changes, dizziness, cough, runny nose, sore throat, shortness of breath, chest pain, palpitations, nausea, vomiting, diarrhea, constipation, abdominal pain, or any urinary issues. [facility] Past Medical History Medical History Intrauterine No active medical problems induced hypertension Family History Family History Grandparent Diabetes mellitus Social History Social History Smoking status: Current some day smoker Tobacco type: cigarettes Second hand tobacco smoke exposure: Yes Alcohol intake: never Substance use: current Substance use type: marijuana Last use: LAST TIME OCTOBER 2020 Gender identity (if verbalized by the patient): Female Spiritual care concerns: No Comments At the time of my signature, I reviewed and agree with the nursing past medical, surgical, social, and family history. There is no relevant family history pertinent to the patient complaint. Exam Narrative: General: Well-developed, well nourished, in no apparent distress Head: Normocephalic, atraumatic. Cardio: Regular rate and rhythm, s1 and s2 normal, no murmur appreciated. Resp: Clear to auscultation bilaterally, no rhonchi, rales, wheezing or rubs. Musculoskeletal: No deformity, bruising and swelling noted over the dorsal right 2nd toe, tender to palpation over the right 2nd and 3rd toe, limited range of motion to the 2nd 3rd toes due to pain, muscle strength strong and equal, peripheral pulse strong, no cyanosis, normal gait and station Course Course Emergency Course: Portions of this record may have been created with voice recognition software. Level of Care: Express Care Visit Vital Signs Vital signs: Vital signs reviewed MDM - Extremity Injury (Lower) MDM Narrative Medical decision making narrative: At the time of visit patient is resting comfortably on the exam table. Right foot x-ray was performed and is negative for any sign of fracture or malalignment of the 2nd 3rd toe. Postop shoe was given. Supportive measures were discussed with the patient she voiced understanding discharge instructions and agrees to treatment plan. Return precautions were reviewed Differential Diagnosis Differential diagnosis: Likely fracture of toe and other (Toe sprain) Imaging Data Radiologist's impression: ITS Impressions Foot X-Ray 05/30/23 18:49 IMPRESSION: No acute osseous finding in the right foot. Discharge Plan Discharge Clinical Impression: Sprain of toe Qualifiers: Encounter type: initial encounter Qualified Code(s): S9
[2023-05-30 18:20] VITALS: BP 123/80; PULSE 88; RESP 16; TEMP 37.1; O2SAT 97
== END 2023-05-30 18:55 | disposition home or self-care (01) ==
PROVIDERS: Emergency Provider Nurse Practitioner Family; PCP Hospitalist
DX: S93.504A Unspecified sprain of right lesser toe(s), initial encounter (principal); W22.09XA Striking against other stationary object, initial encounter; S90.121A Contusion of right lesser toe(s) without damage to nail, initial encounter; F17.210 Nicotine dependence, cigarettes, uncomplicated
CPT/HCPCS: 73630; 99213; G0463

== ENCOUNTER 2023-07-24 00:31 | Day surgery (SDC) | payer OTHER, SELFPAY ==
--- NOTE | 2023-07-13 14:49 | PC.NURSE ---
Report to the Outpatient Waiting Room, entrance under the green pavilion located off [facility], at time 06:00AM on date 07-24-23. Planned Procedure Time: 07:30AM. Time changes happen often and if your time is changed the preop area will call you the afternoon before. - You and your visitor will be asked to self-screen and do not enter if you have any COVID symptoms. - A mask is optional within the hospital at this time. Patients may have clear liquids (water, carbonated beverages, clear teas, apple juice) until 3 hours prior to surgery (04:30AM) with a maximum of 20 ounces. - No food from midnight until time of surgery Take the following medications with a SIP of water the morning of surgery: TAKE CONTROL NIGHT BEFORE DO NOT STOP ANY OF YOUR OTHER PRESCRIPTION MEDICATIONS PRIOR TO SURGERY ?EXCEPT THE FOLLOWING Medications to discontinue per physician N/A Please no make-up, nail sri [place]ankan, hairspray, perfume, deodorant, or body powder the day of surgery. No jewelry (including any body piercings) or valuables the day of surgery, leave them at home. Please take a shower or bath the night before, or the morning of, surgery with an antibacterial soap. Wear comfortable, loose fitting clothing. - Jewelry must be removed prior to entering the operating room. Rings and piercings that are not removed may be cut off. - The hospital will not accept responsibility for valuables. - Please leave all valuables, including medications, at home the day of surgery. If you are going home after surgery, a licensed industrial truck driver must drive you home. - NO public transportation without another adult if you receive anesthesia. - We recommend that an adult stay with you for 24 hours following discharge. - We also recommend that you do not drive, make important decision, drink alcoholic beverages, or take any drugs that were not prescribed by your health care provider for at least 24 hours after your discharge time. Follow any additional instructions given to you from your surgeon. If you or anyone in your household have experienced Covid symptoms in the past week, please notify your surgeon or the nurse liaison at the phone number below for possible testing. Telephone instructions given to PATIENT and asked if any additional questions and then verbalized understanding. Patient advised to call surgeon office or pre surgery nurse liaison [phone] if any additional questions.
[2023-07-13 15:06] VITALS: BMI 16.5
[2023-07-24] VITALS (8 sets, daily range): BP systolic 108–138; BP diastolic 63–87; PULSE 52–73; RESP 12–19; TEMP 36.4–36.8; O2SAT 100
--- NOTE | 2023-07-24 08:24 | WPDHPUPDATE1 ---
History and Physical Update Update Date/Time: 07/24/23 08:24 History and Physical has been reviewed, including an updated exam of the patient. There are NO changes in the patient's condition. Risks, benefits, and alternatives have been discussed and questions answered. Patient agrees to proceed with procedure.
[2023-07-24] MEDS: ACETAMINOPHEN 500 MG TABLET 1000 MG PO (08:59)
[2023-07-24] MEDS: LACTATED RINGERS 1,000 ML 30 ML IV CONT ×2 (09:19→10:45)
[2023-07-24] MEDS: KETOROLAC 15 MG/ML VIAL (*BKC) IV PUSH (09:19)
--- NOTE | 2023-07-24 09:21 | WPDANESEPPF ---
Anes - Initial Pre Proc Eval Procedure: Operation Date: 07/24/23 07:30 Proposed Procedures p Laparoscopic Bilateral Salpingectomy, - Roxie Zheng MD s Hysteroscopy with Endometrial Ablation - Roxie Zheng MD Date/Time: 07/24/23 09:21 Surgeon: Roxie Zheng MD Pre Op Diagnosis: desires sterilization Patient Data Age: 22 Gender: F Height: 1.57 m Weight: 41 kg Last Vital Signs Temp 98.2 F 07/24/23 09:20 Pulse 73 07/24/23 09:20 Resp 16 07/24/23 09:20 BP 123/85 07/24/23 09:20 Pulse Ox 100 07/24/23 09:20 O2 Del Method Room Air 07/24/23 09:20 Allergies Allergy/AdvReac Type Severity Reaction Status Date / Time PITTED FRUIT AdvReac Hives Uncoded 07/24/23 08:54 Home Medications Medication Instructions Recorded Confirmed Type drospirenone (contraceptive) 4 mg 4 mg PO DAILY 04/09/23 07/24/23 History (28) tablet (Slynd) metoclopramide HCl 5 mg tablet 5 mg PO AC PRN Nausea 07/24/23 07/24/23 History Patient hx anesthesia problems: post op nausea/vomiting Family hx anesthesia problems: none Results Review: All pre-operative results and documents have been reviewed as part of the pre-operative evaluation. [facility] Past Medical History Medical History Intrauterine No active medical problems induced hypertension Family History Family History Grandparent Diabetes mellitus Social History Social History Smoking status: Never smoker Tobacco type: cigarettes Second hand tobacco smoke exposure: No Alcohol intake: current Alcohol use details: 1 DRINK A MONTH Substance use: current Substance use type: marijuana Other substance usage details: DAILY Last use: 07-13-23 Living arrangements: with family Gender identity (if verbalized by the patient): Female Spiritual care concerns: No Anes - Eval Final PreProcedure Day of Procedure 07/24/23 09:21 Patient weight: normal Heart: regular rate and rhythm Lungs: clear to auscultation Airway: Mallampati scale Neurological: alert and oriented Last oral intake: >/= 8 hours ASA classification: II Emergent: no Anesthetic plan: proceed Anesthesia type and monitoring: general ETT and standard monitoring Results Review: All pre-operative results and documents have been reviewed as part of the pre-operative evaluation. Informed Consent: The patient's anesthetic plan and its attendant risks and benefits were discussed with the patient/family/POA. Questions were solicited and answers provided to the satisfaction of the patient/family/POA.
[2023-07-24] MEDS: SCOPOLAMINE 1 MG PATCH 1 PATCH TRANSDERM (09:24)
--- NOTE | 2023-07-24 10:16 | P.OP_ITS ---
Procedure Note - Detailed Date of Procedure 07/24/23 Pre-op Diagnosis desires sterilization, menorrhagia Post-op Diagnosis Same Procedure Performed Laparoscopic bilateral salpingectomy with endometrial ablation and hysteroscopy. Surgeon Roxie Zheng MD Anesthesia General Indications Menorrhagia, female sterilization Findings Normal fallopian tubes, uterus, ovaries. , normal vulva, normal vagina, normal cervix, normal Intrauterine cavity. Description of Procedure Patient was taken the operating room. She has prepped draped in the dorsal lithotomy position after induction of general anesthesia. A 5 mm abdominal incision was made in left upper quadrant of the abdomen with scalpel. A 5 mm trocars inserted the intra-abdominal cavity under direct visualization of the scope. Pneumoperitoneum was achieved. A 5 mm periumbilical incision was made using a scalpel on the abdominal scan. A 5 mm trocar was inserted the intra- abdominal cavity under visualization of the scope. A 5 mm incision made left lower quadrant of the abdomen. A 5 mm trocar was inserted the intra-abdominal cavity and direct visualization of the scope. The bilateral fallopian tubes were removed. The paratubal tissue in the area of the uterus was grasped with the LigaSure cautery and transected after being cauterized. The paratubal tissue from the ovary to the uterine cornu was cauterized and transected with LigaSure cautery. This was all done in a bilateral fashion. The tube was transected at the area of the uterine cornua and the tubes was removed through the 5 mm trocar site. The pneumoperitoneum was reduced. The trocars were removed. The skin was closed with subcuticular 4 Monocryl and covered with Dermabond. Our attention was then turned to the endometrial ablation portion of the procedure. A speculum was placed in the vagina. The cervix was grasped with a tenaculum. The cervix was dilated to approximately 8 mm with Rasmussen dilators. The hysteroscope was inserted. And the below findings were noted. All of the intrauterine surfaces were curettaged with a medium-size curette and the specimens were collected. Measurements of the cervix were taken using the uterine sound and the hysteroscope. The intrauterine cavity measurements were entered into the handpiece. The device was inserted into the intrauterine cavity and the array was expanded. The balloon cuff was inflated. When an adequate seal was formed the safety and energy cycles were initiated and completed. The array was collapsed, the balloon was deflated. The insert was withdrawn. The hysteroscope was reinserted and a well desiccated intrauterine cavity was observed. The patient was taken recovery room stable condition. Sponge lap and needle counts were correct x2. She tolerated the procedure well. Pathology Yes Complications No immediate complications Condition Stable Disposition PACU
[2023-07-24] MEDS: fentaNYL CITRATE INJ (*CRX) 100 MCG/2 ML VIAL 25 MCG IV PUSH ×2 (10:45→10:51)
[2023-07-24] MEDS: ONDANSETRON INJ 4 MG/2 ML VIAL IV PUSH (11:22)
[2023-07-24] MEDS: oxyCODONE HCL (*CRX) 5 MG TAB IR PO (11:35)
== END 2023-07-24 12:15 | disposition home or self-care (01) ==
PROVIDERS: PCP Hospitalist; Visit Provider Obstetrics & Gynecology
PROC: (CPT 49320; principal; 2023-07-24 07:30)
PROC: 0U5B8ZZ Destruction of Endometrium, Via Natural or Artificial Opening Endoscopic (ICD-10-PCS; CPT 58563; 2023-07-24 07:30)
DX: Z30.2 Encounter for sterilization (principal); N92.0 Excessive and frequent menstruation with regular cycle; F12.90 Cannabis use, unspecified, uncomplicated
CPT/HCPCS: 58563; 58661; 88302; A9270; J1100; J1170; J1885; J2250; J2405; J2704; J3010; J7120

== ENCOUNTER 2023-11-09 18:43 | Emergency (ER) | payer MEDICAID, SELFPAY ==
[2023-11-09 18:50] VITALS: BP 123/87; PULSE 86; RESP 16; TEMP 36.8; O2SAT 100
--- NOTE | 2023-11-09 19:38 | ED.SKABFB ---
HPI - Skin/Abscess/Foreign Bdy General Chief complaint: Skin/Abscess/Foreign Body Stated complaint: Bump on chest/causing pain Time Seen by Provider: 11/09/23 19:20 Source: patient Mode of arrival: ambulatory Limitations: no limitations History of Present Illness HPI narrative: 23 year old female presents to [facility] care with complaints of small red raised lesion to left anterior chest area that she noted this morning with some discomfort to area. Patient reports no trauma to area, no pustule formation or any drainage of area or acute redness. Patient deneis any fevers, chills or sweats, states she has applied heat and ice to area today. MD complaint: other (small red lesion) Onset (ago): day(s) (this morning) Location: chest (left anterior chest) Severity scale (1-10): 6 Quality: aching Treatments prior to arrival: other (heat and cold) Related Data Home Medications Medication Instructions Recorded Confirmed methylphenidate HCl 18 mg 18 mg PO DAILY 11/09/23 11/09/23 tablet,extended release 24 hr (Concerta) Allergies Allergy/AdvReac Type Severity Reaction Status Date / Time No Known Allergies Allergy Verified 11/09/23 19:08 Review of Systems Review of Systems: CONSTITUTIONAL: Denies fever, chills, or sweats. CARDIOVASCULAR: Denies chest pain, palpitations, or edema. RESPIRATORY: Denies cough or dyspnea. SKIN: Reports small raised lesion to left anterior chest MUSCULOSKELETAL: Denies joint pain or myalgia. NEUROLOGIC: Denies headache, numbness, or weakness. All systems reviewed & are unremarkable except as noted in HPI and below PMFSH Past Medical History Medical History (Updated 11/11/23 @ 19:12 by Thania Parra NP) ADHD (attention deficit hyperactivity disorder) Intrauterine Postural orthostatic tachycardia syndrome [POTS] induced hypertension Surgical History Surgical History [place] teeth extracted Family History Family History Grandparent Diabetes mellitus Social History Social History Smoking status: Never smoker Tobacco type: cigarettes Second hand tobacco smoke exposure: No Alcohol intake: current Alcohol use details: 1 DRINK A MONTH Substance use: current Substance use type: marijuana Other substance usage details: 2xweek Living arrangements: with family Gender identity (if verbalized by the patient): Female Spiritual care concerns: No Comments At time of signature, agree with nursing past medical, surgical, social and family history. There is no relevant family history pertinent to the presenting complaint Exam Narrative: GENERAL: Well-appearing, well-nourished, and in no acute distress. HEAD: Normocephalic, atraumatic. EYES: PERRLA, conjunctivae clear, and EOMI. ENT: Mucous membranes moist. Oropharynx without edema, erythema or lesions. NECK: Supple. No lymphadenopathy CHEST: Clear to auscultation. No respiratory distress.SAO2 100% on room air HEART: Regular rate and rhythm. SKIN: Warm, dry.? Small red raised lesion,irregular in shape no induration or fluctuation of tissue to left upper anterior chest no drainage states some tenderness to tissue NEURO:? Alert and oriented x3. PSYCH: Normal mood and affect Course Course Emergency Course: Patient is aware of diagnosis, understands and agrees to treatment plan.? Anticipatory guidance given.? Patient agrees to follow-up as directed and is aware of reasons to seek care at the emergency department. Portions of this record may have been created with voice recognition software Level of Care: Express Care Visit Vital Signs Vital signs: Vital Signs Temperature 36.8 C 11/09/23 18:50 Pulse Rate 86 11/09/23 18:50 Respiratory Rate 16 11/09/23 18:50 Blood Pressure 123/87
== END 2023-11-09 19:56 | disposition home or self-care (01) ==
PROVIDERS: Emergency Provider Registered Nurse; PCP Hospitalist
DX: L98.9 Disorder of the skin and subcutaneous tissue, unspecified (principal); F12.90 Cannabis use, unspecified, uncomplicated; F90.9 Attention-deficit hyperactivity disorder, unspecified type
CPT/HCPCS: 99213; G0463

== ENCOUNTER 2025-02-14 18:27 | Emergency (ER) | payer SELFPAY ==
--- OUTSIDE RECORDS SUMMARY | 2025-02-14 18:29 | XMS_ITS | Clinical Summary ---
Author Organization [facility] Address [address] [address] Phone Care Team Providers Care Newspaper Peddler Name Role Phone Ty Douglas MD Primary Care Provider [phone] Allergies Active Allergy Reactions Criticality Noted Date Comments Adhesive Tape-Silicones Blisters High 01/11/2024 Medications metoclopramide (REGLAN) 5 mg tabletIndicatio ns:Chronic diarrhea,Epigas tric pain Take 1 tablet (5 mg total) by mouth 3 (three) times a day as needed (nausea) 90 tablet 1 12/28/2023 Active ALPRAZolam (XANAX) 0.25 mg tabletIndicatio ns:KATHY (generalized anxiety disorder) Take 1 tablet (0.25 mg total) by mouth as needed for anxiety 15 tablet 06/06/2024 Active escitalopram (LEXAPRO) 10 mg tabletIndicatio ns:KATHY (generalized anxiety disorder) TAKE 1 TABLET BY MOUTH EVERY DAY 60 tablet 08/06/2024 Active Active Problems Problem Noted Date Diagnosed Date Early satiety 06/22/2023 Assessment & Plan (06/22/2023 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): still feeling nauseated with early satiety everyday Weight down a couple of lbs since last visit Started omeprazole 20 mg 2 days ago, stomach does not feel as sore in the morning Recently started on reglan as well, takes as needed if nausea is really bad Slowed down marijuana smoking Plan Start taking reglan 5mg TID before meals Follow up on previously ordered gastric emptying study Small frequent low fat and low residue meals Continue omeprazole 20 mg daily for gastritis Continue to work on cutting down on marijuana Weight loss 06/22/2023 Nausea and vomiting 06/22/2023 Assessment & Plan (12/30/2023 7:00 AM CDT): Previous gastric emptying study normal Out of Reglan, was taking as needed before meals or after if feeling nauseated. Forreston like it was helping. Will refill Reglan and take as needed. Also do trial of mirtazapine 7.5 mg QHS to help with appetite and sleep. Chest discomfort 01/30/2023 Shortness of breath 01/30/2023 Lightheadedness 01/30/2023 Syncope and collapse 01/30/2023 Epigastric pain 01/16/2023 Assessment & Plan (01/04/2024 3:49 PM CDT): Patient continues to have significant amounts of abdominal pain; difficulty with eating enough to maintain weight Follows with GI Continue mirtazapine 7.5 mg, Reglan 5 mg t.i.d. Assessment & Plan (05/08/2023 11:25 AM OIL WELL DRILLER): Patient has appt with GI on 05/21 for EGD Assessment & Plan (01/18/2023 8:27 AM CDT): intense epigastric pain with eating associated with daily nausea Some mornings that feel like morning sickness with vomiting about twice to three times a month No heartburn, reflux, dysphagia, odynophagia Often has to force herself to eat due to nausea and early satiety Also has significant myalgia, brain fog and memory issues Lost a few lbs over the last month, only able to maintain work if forces herself to eat Per patient, EGD and colonoscopy 10 years ago, had G tube due to failure to thrive for about a year. Gastric emptying test showed possible slowed emptying, no records available No NSAID use Someone from mother side had colostomy Regular marijuana use for appetite stimulant, felt like symptoms got worse after stopping during , no smoking or regular ETOH use normal CBC and CMP, TSH, lipid panel, vitamin-D from 01/08/2023 Normal ESR, CRP, RICHARD 08/2022 Negative TTG IgA 10/2015 Abdominal ultrasound 10/2015 showed large amount of debris in the bladder consistent with cystitis otherwise normal Plan Wide ddx, PUD, esophagitis, functional dyspepsia, gastroparesis, cannabinoid hyperemesis syndrome, eating disorder, etc Will plan for EGD and colonoscopy, if negative then will order gastric emptying study Discussed marijuana cessation but patient not interested and believes that previously when she stopped using it did not make any difference in her symptoms. Chronic diarrhea 01/16/2023 Assessment & Plan (12/30/2023 7:03 AM CDT): Still having multiple BM's in the morning with incomplete evacuation, soft and liquid but having to strain to have BM No stool studies done yet Plan Follow up on colonoscopy for further evaluation, wide ddx include IBS/SIBO, IBD, functional, marijuana induced, infection etc Follow up on previously ordered chronic diarrhea work up Assessment & Plan (06/22/2023 5:13 PM OIL WELL DRILLER): Per initial consult note Daily BM 4-5 times a day with fecal incontinence, nocturnal symptoms associated with night sweats, not greasy, not associated with eating, no specific food triggers, used to take imodium but wouldn't have BM for days Per patient had normal colonoscopy 10 years ago normal CBC and CMP, TSH, lipid panel, vitamin-D from 01/08/2023 Normal ESR, CRP, RICHARD 08/2022 Negative TTG IgA 10/2015 Since last visit EGD 05/2023 with minimal inactive gastritis and normal duodenum bx, also normal celiac serology 12/2022. Did not prep for colonoscopy because could not tolerate dulcolax, has been rescheduled to 08/2023 CT A/P 05/2023 with contrast showed no acute findings. Interval labs from 05/01 showed normal CMP, cbc, UA, did not get any stool studies done for diarrhea work up Has not had emptying study done yet, has been having more tarry looking stools with a foul smell, still feeling nauseated with early satiety everyday Weight down a couple of lbs since last visit Plan Follow up on colonoscopy for further evaluation, wide ddx include IBS/SIBO, IBD, functional, marijuana induced, infection etc Follow up on previously ordered chronic diarrhea work up Again counseled patient to stop marijuana use Assessment & Plan (05/08/2023 11:25 AM OIL WELL DRILLER): Patient has appt with GI on 05/21 for EGD Assessment & Plan (01/18/2023 8:22 AM CDT): Daily BM 4-5 times a day with fecal incontinence, nocturnal symptoms associated with night sweats, not greasy, not associated with eating, no specific food triggers, used to take imodium but wouldn't have BM for days Per patient had normal colonoscopy 10 years ago normal CBC and CMP, TSH, lipid panel, vitamin-D from 01/08/2023 Normal ESR, CRP, RICHARD 08/2022 Negative TTG IgA 10/2015 Plan Will plan for colonoscopy for further evaluation, wide ddx include IBS/SIBO, IBD, celiac or other small bowel enteropathy, infection etc Chronic diarrhea work up BMI less than 19,adult 01/08/2023 Blood tests for routine general physical examina tion 01/08/2023 Fatigue 01/08/2023 Snoring 01/08/2023 POTS (postural orthostatic tachycardia syndrome) 01/08/2023 Assessment & Plan (01/04/2024 3:48 PM CDT): Patient has had multiple symptoms consistent with POTS; only mild cardiac symptoms Concern for possible POTS and or hyper mobility syndromes Would recommend evaluation by neurologist especially in autonomic dysfunction Hot flashes 01/08/2023 Anxiety 12/20/2022 Assessment & Plan (04/07/2024 4:31 PM CDT): Jumped to #1 out of 216 DJs in 11 states Every morning she has work, she wakes up and feels clammy and vomits Also happens when she has to take her son to therapy or go to the grocery store she vomits Had full panic attack recently Lexapro 10 mg daily and Xanax 0.25 mg PRN Follow up 4-6 weeks Attention deficit hyperactiv ity disorder (ADHD), combined type 08/08/2022 Assessment & Plan (01/04/2024 3:48 PM CDT): Patient reports more awake with medication, continues to have fog and difficulty with focusing; easily distracted Gets 8 hours of sleep Continues have difficulty at work Will start Strattera 40 mg daily, increase to 80 mg based on response to therapy Assessment & Plan (08/10/2023 10:43 AM OIL WELL DRILLER): Did not get refill on Concerta; states that Concerta kept her awake Son recently got diagnosed with autism level 3 Strattera 40 mg daily Follow up 2 months Assessment & Plan (05/08/2023 11:25 AM OIL WELL DRILLER): Continue Concerta 18 mg daily States that she has noticed somewhat of a difference in concentration Assessment & Plan (04/10/2023 11:14 AM CDT): Patient states she has difficulty completing household tasks as she gets distracted. Patient states she was told as a child that she had ADHD. Start Concerta 18 mg daily Follow up 1 month Myalgia 08/08/2022 Assessment & Plan (08/08/2022 1:43 PM OIL WELL DRILLER): Patient reports worsening and more persistent symptoms, happening most days of the week; difficulty getting into and out of bed, low energy levels, no longer enjoying getting out Feels out of breath and has complaints of chest pain Will check for routine labs for possible autoimmune diseases Would also consider major depressive disorder as possible cause REM sleep behavior disorder 08/08/2022 Assessment & Plan (08/08/2022 1:44 PM OIL WELL DRILLER): Patient reports multiple abnormalities with sleep, including non-refreshing sleep, hallucinating intrusive dreams that feel real Falls asleep naps during the day due to poor quality sleep at night Will continue to monitor, likely recommend sleep Medicine follow-up Delayed gastric emptying 08/08/2022 Assessment & Plan (08/10/2023 10:45 AM OIL WELL DRILLER): Gastric emptying study showed normal gastric emptying She is calling GI to find out next steps Assessment & Plan (05/08/2023 11:25 AM OIL WELL DRILLER): Patient has appt with GI on 05/21 for EGD Assessment & Plan (10/11/2022 5:39 PM CDT): Unclear etiology; continues to have symptoms of poor appetite, getting sick easily; concern for POTS syndrome as cause of GI effects given autonomic dysfunction associated with POTS Assessment & Plan (08/08/2022 1:45 PM OIL WELL DRILLER): Patient reports previous workup demonstrated mildly slow gastric emptying; however patient reports since has been having worsening symptoms, has constant stomach pain, poor appetite; patient reports having emesis 12 hours after meal and vomiting of undigested foods, as well as black emesis Concerns for possible delayed gastric emptying verses ulcer Will check routine labs, consider referral to GI for further evaluation Recurrent major depression 08/03/2022 Assessment & Plan (12/20/2022 3:30 PM CDT): Weird dreams with Remeron-stop Remeron Start Seroquel 25 mg at night Patient states that she is not noticing a change on the Venlafaxine. She would like to try something different Start Cymbalta 30 mg daily. Follow up in 1 month Assessment & Plan (10/11/2022 5:38 PM CDT): Improved sleep with Remeron, though has some daytime drowsiness Concerned about worsening brain fog, difficulty with remembering names; difficulty with remembering activities for day-to-day Continue Remeron 7.5 mg nightly, venlafaxine 75 mg daily; will continue to monitor Assessment & Plan (08/22/2022 1:32 PM OIL WELL DRILLER): Stable, well controlled; patient reports symptoms are improving with use of Effexor; the reports diarrhea which is resolving since starting medication Continue Effexor 75 mg daily Patient has difficulty falling asleep; given also suppressed appetite, will start mirtazapine 7.5 mg nightly Immunizations Immunization Administration Dates Next Due DTaP 03/09/2003, 1,05/16/1999,03/08,01/05/1999 Hep A, Pediatric 11/18/2001 Hep B / HiB 05/16/1999 Hep B, Adolescent or Pediatric 05/16/1999,1998,1998 HiB 08/09/2000,03/08/1999,01/05/1999 IPV 03/09/2003, 1,03/08/1999,01/05 Influenza, Quadrivalent, Spl it, Intramuscular 04/09/2019 Influenza, Unspecified 04/07/2024(Deferr ed: Patient Refused),04/10/2023(Deferred: Patient Refused),04/01/2023(Deferred: Patient Refused),04/01/2023(Deferred: Patient Refused),08/22/2022(Deferred: Patient Refused),08/03/2022(Deferred: Patient Refused),04/02/2022(Deferred: Patient Refused),04/01/2022(Deferred: Patient Refused),03/02/2022(Deferred: Patient Refused),03/02/2022(Deferred: Patient Refused),03/02/2022(Deferred: Patient Refused),04/01/2021(Deferred: Patient Refused) MMR 03/09/2003,08/09/2000 Tdap 02/15/2018,02/06/2018 Surgical History Surgery Date Site/Laterality Comments COLONOSCOPY 07/02/2012 - 07/01/2013 UPPER GASTROINTESTINAL ENDOSCOPY TUBAL LIGATION 1-23-24 G TUBE PLACEMENT 0424-2021 ABLATION 07/21/2023 uterus WISDOM TOOTH EXTRACTION COLONOSCOPY 01/14/2024 Medical History Medical History Date Comments GERD (gastroesophageal reflux disease) While pre gnant Alcohol abuse As an teenager 15-17 Anemia 01-08-23 Anxiety 08-16-22 Brain concussion Beginning this year Depression After Hypertension After / few times this year Substance abuse (HCC) As an teenager Menstrual problem Family History Medical History Relation Name Comments Drug abuse Father Jamaal Multiple sclerosis Maternal Grandmother Drug abuse Mother Demi Diabetes Paternal Grandfather Rickey Skin cancer Paternal Grandfather Rickey Relation Name Status Comments Father Jamaal Maternal Grandmother Mother Demi Paternal Grandfather Rickey Social History Tobacco Use Types Packs/Day Years Used Date Smoking Tobacco: Never Smokeless Tobacco: Never Tobacco Cessation:Counseling Given: Not Answered Humiliation, Afraid, Rape, and Kick questionnair e Answer Date Recorded Within the last year, have y ou been afraid of your partner or ex-partner? No 12/20/2022 Within the last year, have y ou been humiliated or emotionally abused in other ways by your partner or ex-partner? No Within the last year, have y ou been kicked, hit, slapped, or otherwise physically hurt by your partner or ex-partner? No 12/20/2022 Within the last year, have y ou been raped or forced to have any kind of sexual activity by your partner or ex-partner? No 12/20/2022 Social Connection and Isolation Panel Answer Date Recorded In a typical week, how many times do you talk on the phone with family, friends, or neighbors? More than three times a week 12/20/2022 How often do you get togethe r with friends or relatives? More than three times a week 12/20/2022 How often do you attend chur ch or advent services? Never 12/20/2022 Do you belong to any clubs o r organizations such as adventist groups, unions, fraternal or athletic groups, or school groups? Yes 12/20/2022 How often do you attend meet ings of the clubs or organizations you belong to? More than 4 times per year 12/20/2022 Are you , , di vorced, , never , or living with a partner? Living with partner 12/20/2022 AUDIT-C Answer Date Recorded Q1: How often do you have a drink containing alc ohol? Monthly or less 01/11/2024 Average Number of Drinks Not on file 024 Frequency of Binge Drinking Not on file 12/30 Overall Financial Resource Strain (CARDIA) Answe r Date Recorded How hard is it for you to pa y for the very basics like food, housing, medical care, and heating? Not hard at all 12/20/2022 PHQ-2 Answer Date Recorded PHQ-2 Total Score (If total score is 3 or more points, staff should administer the PHQ-9) 0 08/10/2023 [facility] - Occupational Stress Questionnaire Answer Date Recorded Do you feel stress - tense, restless, nervous, or anxious, or unable to sleep at night because your mind is troubled all the time - these days? Rather much 12/20/2022 Exercise Vital Sign Answer Date Recorde d On average, how many days pe r week do you engage in moderate to strenuous exercise (like a brisk walk)? 7 days 12/20/2022 On average, how many minutes do you engage in exercise at this level? 60 min 12/20/2022 Hunger Vital Sign Answer Date Recorded Within the past 12 months, y ou worried that your food would run out before you got the money to buy more. Never true 12/21/19 23 Within the past 12 months, t he food you bought just didn't last and you didn't have money to get more. Never true 12/20/2022 PRAPARE - Transportation Answer Date Re corded In the past 12 months, has l ack of transportation kept you from medical appointments or from getting medications? No 12/01 In the past 12 months, has l ack of transportation kept you from meetings, work, or from getting things needed for daily living? No 12/20/2022 Housing Stability Vital Sign Answer Forrest e Recorded In the last 12 months, was t here a time when you were not able to pay the mortgage or rent on time? No 12/20/2022 In the last 12 months, how many places have you lived? 1 12/20/2022 In the last 12 months, was t here a time when you did not have a steady place to sleep or slept in a detention (including now)? No 12/20/2022 Personal Safety Answer Date Recorded Have you ever been in or are you currently in a harmful physical or emotional relationship or is someone making you feel afraid or unsafe? Denies 01/14/2024 Comments No Sex and Gender Information Value Date Recorded Sex Assigned at Not on file Legal Sex Female 3:15 PM OIL WELL DRILLER Gender Identity Not on file Sexual Orientation Not on file Obstetrics History Last Filed Vital Signs Vital Sign Reading Time Taken Comments Blood Pressure 100/66 04/07/2024 4:02 PM CDT Pulse 80 04/07/2024 4:02 PM CDT Temperature 36.8 C (98.2 F) 04/07/2024 4:02 PM CDT Respiratory Rate 16 04/07/2024 4:02 PM CDT Oxygen Saturation 99% 04/07/2024 4:02 PM CDT Inhaled Oxygen Concentration - - Weight 40.1 kg (88 lb 6.4 oz) 04/07/2024 4:02 PM CDT Height 157.5 cm (5' 2) 04/07/2024 4:02 PM CDT Body Mass Index 16.17 04/07/2024 4:02 PM CDT Plan of Treatment Health Maintenance Due Date Last Done Comments Cervical Cancer Screening 1998 Varicella Vaccines (1 of 2 - 13+ 2-dose series) 11/04/2011 HPV Vaccines (1 - 3-dose series) 2013 Depression Screening 08/10/2024 08/10/2023, 05/08/2023, 04/10/2023, Additional history exists Regular Well Visit/Exam 18-64 12/25/2024 12/26/2023 Influenza Vaccine (#1) 2025 04/09/2019 DTaP/Tdap/Td Vaccine (8 - Td or Tdap) 02/16/2028 02/15/2018, 02/06/2018, 03/09/2003, Additional history exists Hepatitis B Screening Completed 05/16/1999 , 05/16/1999, 1998, Additional history exists Hepatitis C Screening Completed 03/20/2024 Pneumococcal vaccine <65 Aged Out No longer eligible based on patient's age to complete this topic Procedures Procedure Name Priority Date/Time Associated Diagnosis Comments HEPATITIS C ANTIBODY Routine 03/20/2024 3:35 PM CDT Encounter for hepatitis C screening test for low risk patient from Last 3 Months or Most Recently Relevant to Health Maintenance Results * Hepatitis C antibody Blood (03/20/2024 3:35 PM CDT) Hep C Ab Nonreactive Nonreactive Comment: Interpretive Data Nonreactive: Antibodies to HCV not detected. Does NOT exclude the possibility of recent exposure to HCV. Equivocal: Equivocal for HCV antibodies. Supplemental molecular testing will be automatically performed to determine infection status in accordance with current CDC screening recommendations. Reactive: Positive for HCV antibodies. This may represent current or past HCV infection. Supplemental molecular testing will be automatically performed to determine current infection status in accordance with current CDC screening recommendations. Interpretive data was last revised on 2019. Testing performed by: [facility], [address] [place] [address], [place]., [address] Blood 03/20/2024 3:35 PM CDT 03/20/2024 9:11 PM CDT Ty Douglas MD LAB MICROBIOLOGY - GENERA L ORDERABLES Final Result [facility] Department [place] [address] from Last 3 Months or Most Recently Relevant to Health Maintenance Insurance [facility] Advance Directives For more information, please contact: [phone] * Full Code (Latest Code Status on File) Date Activated Date Inactivated Comments 01/14/2024 8:12 AM 01/14/2024 3:10 PM * Full Code Date Activated Date Inactivated Comments 01/14/2024 8:12 AM 01/14/2024 8:12 AM * Full Code Date Activated Date Inactivated Comments 05/21/2023 8:44 AM 05/21/2023 2:59 PM * Full Code Date Activated Date Inactivated Comments 05/21/2023 8:44 AM 05/21/2023 8:44 AM Care Teams Newspaper Peddler Relationship Specialty Start Date End Date Ty Douglas MD [address] [place] [address] PCP - General Family Medicine 08/03/22
--- OUTSIDE RECORDS SUMMARY | 2025-02-14 18:29 | XMS_ITS | Clinical Summary ---
Author Organization [facility] Address [address] [place] [address] Phone Care Team Providers Care Orchid Transplanter Name Role Phone Ty Douglas MD Primary Care Provider Allergies No known active allergies Medications No known medications Social History Tobacco Use Types Packs/Day Years Used Date Smoking Tobacco: Never Smokeless Tobacco: Never Tobacco Cessation:Counseling Given: Not Answered Alcohol Use Standard Drinks/Week Comments Not Currently 0 (1 standard drink = 0.6 oz pur e alcohol) Comments No Sex and Gender Information Value Date Recorded Sex Assigned at Not on file Legal Sex Female 8:57 PM CDT Gender Identity Not on file Sexual Orientation Not on file Last Filed Vital Signs Vital Sign Reading Time Taken Comments Blood Pressure 137/92 07/09/2024 2:31 AM OFFSET ASSISTANT PRESS OPERATOR Pulse 90 07/09/2024 2:31 AM OFFSET ASSISTANT PRESS OPERATOR Temperature 35.6 C (96.1 F) 07/09/2024 1:25 AM OFFSET ASSISTANT PRESS OPERATOR Respiratory Rate 16 07/09/2024 2:31 AM OFFSET ASSISTANT PRESS OPERATOR Oxygen Saturation 98% 07/09/2024 2:31 AM OFFSET ASSISTANT PRESS OPERATOR Inhaled Oxygen Concentration - - Weight 41.7 kg (92 lb) 07/09/2024 1:25 AM OFFSET ASSISTANT PRESS OPERATOR Height 157.5 cm (5' 2) 07/09/2024 1:25 AM OFFSET ASSISTANT PRESS OPERATOR Body Mass Index 16.83 07/09/2024 1:25 AM OFFSET ASSISTANT PRESS OPERATOR Plan of Treatment Health Maintenance Due Date Last Done Comments Hepatitis C Virus (HCV) Screening 1998 Human Papillomavirus (HPV) Immunization (1 - 3-dose series) 2013 Pap Smear 11/04/2019 SARS-COV-2 Immunization ( season) 2024 Influenza Immunization (#1) 2025 04/09/2019 Respiratory Syncytial Virus (RSV) Immunization (Adult) (1 - 1-dose 75+ series) 2073 Hepatitis B Immunization Completed 999, 05/16/1999, 1998, Additional history exists DTaP/Tdap/Td Immunization Discontinued 2017, 02/06/2018, 03/09/2003, Additional history exists TdaP Immunization Completed 02/15/2018, 02/06/2018 Meningococcal Immunization (ACWY) Aged Out No longer eligible based on patient's age to complete this topic Pneumococcal Immunization Combined Aged Out No longer eligible based on patient's age to complete this topic Rotavirus Immunization Aged Out No lo nger eligible based on patient's age to complete this topic Care Teams Orchid Transplanter Relationship Specialty Start Date End Date Ty Douglas MD [address] [place] [address] PCP - General Family Medicine 11/04/22
--- OUTSIDE RECORDS SUMMARY | 2025-02-14 18:29 | XMS_ITS | Clinical Summary ---
Author Organization [facility] Address [address] [place] [address] Care Team Providers Care Wool Sampler Name Role Phone Celi Dawson ALANNA-TYPESETTER APPRENTICE Primary Care Provider + Source Comments [facility],non-owned Affiliates and Associated Physician Practices is amultiple site organization consisting of ambulatory clinics and hospital sitesin [place], [place], [place] and [place]. This disclosure is being madepursuant to the Care Everywhere program and may not contain all information available regarding this patient. Last updated 18.[facility] Allergies Active Allergy Reactions Criticality Noted Date Comments Choi-Tonya Flavor 10/01/2015 Medications * This document contains information received from the source organization and may not represent a complete record from that organization. * Be aware that medications may not be up to date on this document. Alwaysverify current medications with the patient. omeprazole EC (PRILOSEC OTC) 20 MG tablet Take 1 Tab by mouth 2 times daily,before breakfast and supper 60 Tab 4 6 Active Additional Information Patient not taking.Reported on 12/11/2017 dicyclomine (BENTYL) 10 MG capsule Take 1 Cap by mouth 3 times daily 90 Cap 4 6 Active Additional Information Patient not taking.Reported on 12/11/2017 cyproheptadine (PERIACTIN) 4 MG tablet Take 1 Tab by mouth at bedtime 30 Tab 4 6 Active Additional Information Patient not taking.Reported on 12/11/2017 Lactobacillus Rhamnosus, GG, (CULTURELLE) granules Take 1 Packet by mouth 3 times daily 90 Each 4 6 Active Additional Information Patient not taking.Reported on 12/11/2017 Vit-Fe Fumarate-FA ( VITAMIN) 28-0.8 MG tablet Take 1 tablet by mouth once daily Active acetaminophen (TYLENOL) 325 MG tablet Take 325 mg by mouth every 4 hours as needed for Pain Maximum allowable Acetaminophen amount = 4 Grams (4000 mg) / 24 hours. Active ferrous sulfate 325 (65 FE) MG tablet Take 325 mg by mouth once daily Active Active Problems Problem Noted Date Diagnosed Date 33 weeks gestation of 05/31/2021 Ultrasound for scr eening for growth restriction 03/08/2021 Overview (03/08/2021): On outside scan from 02/28/21. Circumvallate placenta in second trimester 03/08 Second 03/08/2021 Overview (03/08/2021): A+, Ab: Negative, Immune, Rpr-NR, Hbsag- NR, HIV- NR H/h/p: 11.8 , 36.4, 232 HgA1c (01/10/21): 5.3 Underweight 10/01/2015 Vomiting 10/01/2015 Marijuana use 10/01/2015 Resolved Problems Problem Noted Date Diagnosed Date Resolved Date Diarrhea 10/01/2015 10/29/2015 Family History Medical History Relation Name Comments Other Other addiction Relation Name Status Comments Other Social History Tobacco Use Types Packs/Day Years Used Date Smoking Tobacco: Every Day Alcohol Use Standard Drinks/Week Comments Yes 0 (1 standard drink = 0.6 oz pur e alcohol) Comments No Sex and Gender Information Value Date Recorded Sex Assigned at Not on file Legal Sex Female 1:52 PM WRISTER Gender Identity Not on file Sexual Orientation Not on file Last Filed Vital Signs Vital Sign Reading Time Taken Comments Blood Pressure 111/60 12/11/2017 11:10 AM CDT Pulse 79 12/11/2017 11:10 AM CDT Temperature - - Respiratory Rate - - Oxygen Saturation - - Inhaled Oxygen Concentration - - Weight 37.5 kg (82 lb 10.8 oz) 12/24/2015 10:40 AM CDT Height 157 cm (5' 1.81) 12/24/2015 10:40 AM CDT Body Mass Index 15.21 12/24/2015 10:40 AM CDT Plan of Treatment Health Maintenance Due Date Last Done Comments HPV VACCINE (1 - 3-dose series) 2013 HEPATITIS C SCREENING 10/29/2016 DTAP/TDAP/TD VACCINES (1 - Tdap) 2017 HEPATITIS B VACCINE (1 of 3 - 19+ 3-dose series) 2017 PNEUMOCOCCAL VACCINE (1 of 2 - PCV) 2017 PAP SMEAR 11/04/2019 COVID-19 VACCINE (1 - 2023-2 5 season) 2024 DEPRESSION SCREENING 07/02/2024 INFLUENZA VACCINE (#1) 2025 04/09/2019 ZOSTER VACCINE (1 of 2) 2048 HIV SCREENING Completed 04/18/2021, 01/10/2021 HIB VACCINE Aged Out No longer eligi ble based on patient's age to complete this topic MENINGOCOCCAL (Group B) VACCINE SHARED DECISION-MAKING Aged Out No longer eligible based on patient's age to complete this topic MENINGOCOCCAL GROUPS A/C/Y/W VACCINE Aged Out No longer eligible b ased on patient's age to complete this topic Insurance [facility] NIYAH FENG [address] [facility] SELF PAY NO INSURANCE Member Subscriber Plan / Payer (Ef fective for All Dates) Name:Jessie Taylor Member ID:Not on file Relation to Subscriber:Not on file Name:JESSIE TAYLOR Subscriber ID:Not on file Address: [address] [place] [address] [place] [address] Payer ID:Not on file Group ID:Not on file Type:Self Pay Address: [place], [place] Care Teams Wool Sampler Relationship Specialty Start Date End Date Celi Dawson APRN-SILVERIO [address] [phone] PCP - General 07/07/21
[2025-02-14 18:38] VITALS: BP 138/89; PULSE 74; RESP 18; TEMP 36.7; O2SAT 100
--- NOTE | 2025-02-14 18:46 | ED_ITS ---
HPI - Skin/Abscess/Foreign Bdy General Chief complaint: Skin/Abscess/Foreign Body Stated complaint: Skin Problem Time Seen by Provider: 02/14/25 18:27 Source: patient Mode of arrival: ambulatory Limitations: no limitations History of Present Illness HPI narrative: 24-year-old female presents to [facility] complaints of erythematous rash which started to her scalp approximately 1 week ago. Patient reports that the rash has since spread to her left ear and jaw line. Patient reports that she has noticed a clear and yellow colored drainage to the area of rash. Patient reports that her son start with an area of rash 1 week ago. Patient has been using rubbing alcohol to area. Patient denies fever, body aches, chills, nausea vomiting or diarrhea. MD complaint: rash Onset (ago): week(s) (1) Location: head (scalp and left eat) Relieving factors: none Exacerbating factors: none Associated symptoms: denies other symptoms Related Data Home Medications ?Medication ?Instructions ?Recorded ?Confirmed ?Last Taken ?Type methylphenidate HCl 18 mg 18 mg PO DAILY 11/09/23 11/09/23 Unknown History tablet,extended release 24 hr (Concerta) Allergies Allergy/AdvReac Type Severity Reaction Status Date / Time No Known Allergies Allergy Verified 02/14/25 18:39 Review of Systems Constitutional: Constitutional: Denies chills, Denies fatigue, Denies fever(s) and Denies weakness ENT: Denies vertigo, Denies dizziness, Denies nasal congestion and Denies sore throat Gastrointestinal: Gastrointestinal: Denies diarrhea, Denies nausea and Denies vomiting Musculoskeletal: Musculoskeletal: Denies arthralgias and Denies joint swelling Integumentary/Breasts: Skin/Breast: Denies pruritus, Denies erythema, Reports rash and Denies skin ulcer Neurologic: Denies dizziness, Denies syncope and Denies headache(s) [facility] Past Medical History Medical History ADHD (attention deficit hyperactivity disorder) Postural orthostatic tachycardia syndrome [POTS] induced hypertension Intrauterine Surgical History Surgical History [place] teeth extracted Family History Family History Grandparent Diabetes mellitus Social History Social History Smoking status: Never smoker Tobacco type: cigarettes Second hand tobacco smoke exposure: No Alcohol intake: current Alcohol use details: 1 DRINK A MONTH Substance use: current Substance use type: marijuana Other substance usage details: 2xweek Living arrangements: with family Gender identity (if verbalized by the patient): Female Spiritual care concerns: No Comments At time of signature, I agree with nursing past medical, surgical, social and family history. There is no relevant family history pertinent to the presenting complaint. Exam Const: General: healthy appearing and no acute distress Nutritional Appeara nce: well nourished Orientation/consciousness: patient oriented x3 Limitations: no limitations HENMT: Head: normal to inspection Other: Erythematous raised rash noted to outer left ear with scant amount of yellow color dry drainage noted. Eyes: Conjunctivae: conjunctivae normal Neck: Neck: normal visual inspection Resp: Effort & Inspection: normal respiratory effort and not labored Auscultation: clear to auscultation bilaterally, no crackles, no rales, no rhonchi and no wheezes Cardio: Rate: regular rate Rhythm: regular rhythm Heart sounds: no murmurs Skin: General skin exam: normal color Other: Multiple area of rash noted to scalp. Areas are raised, erythematous and crusted type drainage noted. Severe multiple areas noted to scalp. Similar rash noted to outer left ear and spreading to left jawline. Area likely repres ents impetigo. Neuro: General: patient oriented x3 and moves all extremities Speech: normal speech Extrem: General: normal to inspection Psych: Affect: normal affect Attitude: cooperative Course Course Level of Care: Express Care Visit Vital Signs Vital signs: Vital Signs Temperature 36.7 C 02/14/25 18:38 Pulse Rate 74 02/14/25 18:38 Respiratory Rate 18 02/14/25 18:38 Blood Pressure 138/89 02/14/25 18:38 Pulse Oximetry 100 02/14/25 18:38 Oxygen Delivery Room Air 02/14/25 18:38 Temperature 36.7 C 02/14/25 18:38 Pulse Rate 74 02/14/25 18:38 Respiratory Rate 18 02/14/25 18:38 Blood Pressure 138/89 02/14/25 18:38 Pulse Oximetry 100 02/14/25 18:38 Oxygen Delivery Room Air 02/14/25 18:38 MDM - Skin/Abscess/Foreign Bdy MDM Narrative Medical decision making narrative: Discussed impetigo with patient. Instructed patient to have her child evaluated per his provider. Instructed patient to clean sheets and towels. Educated patient to follow-up with primary care provider if symptoms not improved Differential Diagnosis Differential diagnosis: Likely abscess of skin or subcutaneous tissue, viral exanthem and urticaria Critical Care Time Critical Care Time Critical Care Time: No Discharge Plan Discharge Clinical Impression: Impetigo Patient Disposition: Home Condition: Stable Instructions: Antibiotic Form, Impetigo (ED) Additional Instructions: Take oral antibiotic as prescribed Use ointment to area of rash Wash all towels and sheets in hot water Follow-up with primary care provider symptoms improved Proceed to the emergency room symptoms worsen Patient Language: Lithuanian Prescriptions: New cephalexin 500 mg capsule 500 mg PO Q12H 10 Days Qty: 20 0RF mupirocin [Centany] 2 % ointment 1 applic topical BID 7 Days Qty: 15 0RF No Action methylphenidate HCl [Concerta] 18 mg tablet extended release 24hr 18 mg PO DAILY Follow-up/Referrals: Misael,MD Ty [Primary Care Provider] - Time of Disposition: 18:53
== END 2025-02-14 19:01 | disposition home or self-care (01) ==
PROVIDERS: Emergency Provider Nurse Practitioner Family; PCP Hospitalist
DX: L01.00 Impetigo, unspecified (principal); F90.9 Attention-deficit hyperactivity disorder, unspecified type
CPT/HCPCS: 99213; G0463